=== PATIENT | female | born 1945 | race Caucasian/White ===

== ENCOUNTER 2017-06-16 05:53 | Outpatient (CLI) | payer MEDICARE, MEDICAID | END 2017-06-16 05:54 | disposition critical access hospital (66) | LOC: EMS 05:53 | PROVIDERS: ATTEND Surgery | DX: R42 Dizziness and giddiness (principal) | CPT/HCPCS: A0425; A0427 ==

== ENCOUNTER 2017-06-16 06:06 | Emergency (ER) | payer MEDICARE, MEDICAID ==
[2017-06-16] MEDS ORDERED: diltiaZEM INJ 5 MG/ML VIAL IVP STA (06:13)
[2017-06-16] MEDS ORDERED: SODIUM CHLORIDE 0.9% 1,000 ML IV ONE (06:15)
--- NOTE | 2017-06-16 06:21 | ED Physician Documentation ---
History of Present Illness - Stated complaint Stated Complaint: DIZZY - Chief complaint Chief Complaint: Neuro - History obtained from History obtained from: Patient, EMS - History of Present Illness Timing: Today - Additonal information Additional information: Patient is a 71 year old female with a history of a-fib who is presenting to the emergency department for dizziness. Patient states that she woke up this morning and was feeling dizzy so she called ems. when ems arrived patient was found to have a variable heart rate between 100-180. Patient states that she forgot to take her diltiazam last night but she did end up taking it this morning. Patient denied any chest pain or shortness of breath. Patient was able to ambulate without difficulty when ems arrived. Upon initial evaluation in the emergency department patient was found to have a heart rate of 140s. Review of Systems Constitutional: denies: Fever, Chills Eyes: denies: Decreased vision Ears: reports: Reviewed and negative. denies: Loss of hearing, Ear pain, Tinnitus/ringing Nose: denies: Congestion, Epistaxis Throat: reports: Reviewed and negative Cardiac: denies: Chest pain / pressure, Pedal edema, Calf pain Respiratory: denies: Dyspnea, Cough, Wheezing GI: denies: Abdominal Pain, Nausea, Vomiting : reports: Reviewed and negative Skin: denies: Rash, Lesions Neurologic: denies: Generalized weakness, Focal weakness, Numbness PD PAST MEDICAL HISTORY - Past Medical History Cardiovascular: Atrial fibrillation Respiratory: None Neuro: None Endocrine/Autoimmune: None GI: None : None HEENT: None Psych: None Musculoskeletal: None Derm: None - Past Surgical History Past Surgical History: Yes General: Appendectomy HEENT: Tonsil/Adenoidectomy - Present Medications Home Medications: Ambulatory Orders Medication Instructions Recorded Confirmed Albuterol [Ventolin Hfa] 2 puffs INH Q4H PRN #1 inhaler 10/20/13 06/16/17 Apixaban [Eliquis] 06/16/17 Metoprolol Tartrate 1 tab PO DAILY 06/16/17 06/16/17 Triamterene/Hydrochlorothiazid 1 tab PO DAILY 06/16/17 06/16/17 [Triamterene-Hctz 37.5-25 mg Tb] - Allergies Allergies/Adverse Reactions: Allergies Allergy/AdvReac Type Severity Reaction Status Date / Time Sulfa (Sulfonamide AdvReac Unknown Rash Verified 06/16/17 06:35 Antibiotics) - Social History Does the pt smoke?: No Smoking Status: Never smoker Does the pt drink ETOH?: No Does the pt have substance abuse?: No - Immunizations Immunizations are current?: Yes - POLST Patient has POLST: No PD ED PE NORMAL - Vitals Vital signs reviewed: Yes - General General: Alert and oriented X 3, No acute distress - HEENT HEENT: Atraumatic, PERRL - Respiratory Respiratory: No respiratory distress, Clear bilaterally - Abdomen Abdomen: Soft, Non tender, Non distended - Derm Derm: Normal color, Warm and dry, No rash - Extremities Extremities: No deformity - Neuro Neuro: Alert and oriented X 3, No motor deficit, No sensory deficit, Normal speech Eye Opening: Spontaneous Motor: Obeys Commands Verbal: Oriented GCS Score: 15 PD ED PE EXPANDED - HEENT HEENT: Dry mucous membranes - Cardiac Cardiac: Tachy, Irregularly irregular Results - Vitals Vitals: Vital Signs - 24 hr 06/16/17 06/16/17 06/16/17 06:06 06:25 06:27 Temperature 36.3 C L Heart Rate 139 H 127 H 108 H Respiratory 22 22 28 H Rate Blood Pressure 148/111 H 147/94 H 129/79 O2 Saturation 98 97 98 06/16/17 06/16/17 06/16/17 06:34 06:39 07:01 Temperature Heart Rate 121 H 118 H 122 H Respiratory 20 19 22 Rate Blood Pressure 126/93 H 119/96 H 126/96 H O2 Saturation 98 98 98 06/16/17 06/16/17 06/16/17 07:54 09:26 10:28 Temperature Heart Rate 96 105 H 86 Respiratory 24 26 H 14 Rate Blood Pressure 138/73 H 107/64 114/84 H O2 Saturation 96 97 96 Oxygen O2 Source Room air - EKG (time done) 06/16/17 Rate: Rate (enter#) (149) Rhythm: Atrial fibrillation [place]: Normal Intervals: Prolonged QT QRS: Poor R wave progression Compare to prior EKG: Changed from prior EKG Computer interpretation: Disagree with computer - Labs Labs: Laboratory Tests 06/16/17 06/16/17 06/16/17 06:30 06:30 06:30 WBC 6.0 RBC 4.42 Hgb 14.5 Hct 44.8 MCV 101.4 H MCH 32.9 H MCHC 32.5 RDW 14.0 Plt Count 217 MPV 9.2 Neut # 4.3 Lymph # 1.0 L [place] # 0.4 Eos # 0.2 Baso # 0.1 Absolute Nucleated RBC 0.00 Nucleated RBC % 0.0 Sodium 140 Potassium 3.6 Chloride 101 Carbon Dioxide 25 Anion Gap 14.0 H BUN 16 Creatinine 0.6 Estimated GFR (MDRD) 99 Glucose 137 H Calcium 9.7 Phosphorus 3.9 Magnesium 1.5 L Total Bilirubin 0.4 AST 23 ALT 21 Alkaline Phosphatase 55 Troponin I < 0.04 B-Natriuretic Peptide Total Protein 7.8 Albumin 4.3 Globulin 3.5 Albumin/Globulin Ratio 1.2 Lipase 27 TSH Urine Color Urine Clarity Urine pH Ur Specific [place] Urine Protein Urine Glucose (UA) Urine Ketones Urine Occult Blood Urine Nitrite Urine Bilirubin Urine Urobilinogen Ur Leukocyte Esterase Urine RBC Urine WBC Ur Squamous Epith Cells Urine Bacteria Ur Microscopic Review Urine Culture Comments 06/16/17 06/16/17 06/16/17 06:30 06:30 08:55 WBC RBC Hgb Hct MCV MCH MCHC RDW Plt Count MPV Neut # Lymph # [place] # Eos # Baso # Absolute Nucleated RBC Nucleated RBC % Sodium Potassium Chloride Carbon Dioxide Anion Gap BUN Creatinine Estimated GFR (MDRD) Glucose Calcium Phosphorus Magnesium Total Bilirubin AST ALT Alkaline Phosphatase Troponin I B-Natriuretic Peptide 101 H Total Protein Albumin Globulin Albumin/Globulin Ratio Lipase TSH 3.45 Urine Color YELLOW Urine Clarity CLEAR Urine pH 6.0 Ur Specific [place] 1.010 Urine Protein NEGATIVE Urine Glucose (UA) NEGATIVE Urine Ketones NEGATIVE Urine Occult Blood NEGATIVE Urine Nitrite NEGATIVE Urine Bilirubin NEGATIVE Urine Urobilinogen 0.2 (NORMAL) Ur Leukocyte Esterase TRACE H Urine RBC 0-5 Urine WBC 4-5 Ur Squamous Epith Cells FEW Squamous Urine Bacteria Many H Ur Microscopic Review INDICATED Urine Culture Comments INDICATED PD MEDICAL DECISION MAKING - ED course Complexity details: reviewed old records, reviewed results, re-evaluated patient , considered differential, d/w patient ED course: Patient was seen and examined at bedside. ekg was performed and showed a fib with rvr. Patient was asymptomatic at rest though. IV access was gained and labs were drawn. Patient was treated with diltiazam 20mg and NS bolus. Patient 's heart rate improved. Patient then stated that she had not taken her metoprolol either and was treated with her dose of 25 mg. Patient's diagnostics were within normal limits. Patient required no further work up and was stable for discharge [facility] outpatient follow up. Departure - Departure Disposition: 01 Home, Self Care Clinical Impression: A-fib Condition: Good Instructions: Atrial Fibrillation Dc Follow-Up: Bret Mclain MD [Primary Care Provider] - Comments: Your symptoms today are being caused by an irregular heart beat a fib. Your rate was elevated today likely because you did not take your medications last night. It is important that you are compliant with your medications as skipping doses can cause a reflex tachycardia and make your symptoms worse. If you do not like the side effects of the medication you should follow up with your doctor to work on alternatives. You may return to the emergency department at any time for new, worsening or uncontrollable symptoms. Discharge Date/Time: 06/16/17 10:39
[2017-06-16 06:35] LABS: BASOPHILS # (AUTO) 0.1 10^3/uL (0.0-0.1); BASOPHILS % (AUTO) 1.5 %; EOSINOPHILS # (AUTO) 0.2 10^3/uL (0.0-0.7); EOSINOPHILS % (AUTO) 3.6 %; HGB - HEMOGLOBIN 14.5 g/dL (12.0-16.0); LYMPHOCYTES % (AUTO) 16.8 %; MEAN CORPUSCULAR HEMOGLOBIN 32.9 pg (27.0-31.0); MEAN CORPUSCULAR HGB CONC 32.5 g/dL (32.0-36.0); MEAN CORPUSCULAR VOLUME 101.4 fL (81.0-99.0); MEAN PLATELET VOLUME 9.2 fL (7.9-10.8); MONOCYTES # (AUTO) 0.4 10^3/uL (0.0-1.0); NEUTROPHILS # (AUTO) 4.3 10^3/uL (1.5-6.6); NEUTROPHILS % (AUTO) 71.1 %; PLT - PLATELET COUNT 217 10^3/uL (130-450); RED BLOOD COUNT 4.42 10^6/uL (4.20-5.40)
[2017-06-16] MEDS ORDERED: METOPROLOL SUCCINATE 25 MG TABLET PO STA (06:44)
[2017-06-16 06:50] LABS: ALBUMIN 4.3 g/dL (3.2-5.5); ALBUMIN/GLOBULIN RATIO 1.2 (1.0-2.2); BILIRUBIN,TOTAL 0.4 mg/dL (0.2-1.0); CALCIUM 9.7 mg/dL (8.5-10.3); CREATININE 0.6 mg/dL (0.4-1.0); MAGNESIUM 1.5 mg/dL (1.7-2.8); PHOSPHORUS 3.9 mg/dL (2.5-4.6); TOTAL PROTEIN 7.8 g/dL (6.7-8.2)
[2017-06-16 09:18] LABS: BILIRUBIN,URINE NEGATIVE (NEGATIVE); GLUCOSE, URINE (UA) NEGATIVE (NEGATIVE); KETONES,URINE (UA) NEGATIVE (NEGATIVE); LEUKOCYTE ESTERASE, URINE TRACE (NEGATIVE); NITRITE,URINE NEGATIVE (NEGATIVE); OCCULT BLOOD,URINE NEGATIVE (NEGATIVE); PROTEIN,URINE NEGATIVE (NEGATIVE); UROBILINOGEN,URINE 0.2 (NORMAL) E.U./dL (NORMAL)
[2017-06-16 09:19] LABS: CLARITY,URINE CLEAR (CLEAR)
[2017-06-16 09:27] LABS: BACTERIA,URINE Many /HPF (None Seen); RBC,URINE 0-5 /HPF (0-5); SQUAMOUS EPITHELIAL CELL,UR FEW Squamous (<= Few)
[2017-06-16 10:29] VITALS: BP 114/84
== END 2017-06-16 10:39 | disposition home or self-care (01) ==
LOC: EDUNIT# → ED 06:06
DX: I48.91 Unspecified atrial fibrillation (principal); R00.0 Tachycardia, unspecified
CPT/HCPCS: 36415; 80053; 81001; 83690; 83735; 83880; 84100; 84443; 84484; 85025; 87086; 87181; 93005; 96361; 96374; 99284; 99285; A9270; 81003

== ENCOUNTER 2017-07-06 09:52 | Outpatient (CLI) | payer MEDICARE, MEDICAID ==
--- NOTE | 2017-07-07 15:57 | Mammography Report ---
DIGITAL SCREENING MAMMOGRAM: 07/06/2017 CLINICAL INDICATION: A 71-year-old with history of late childbearing, for baseline. TECHNIQUE: Routine CC and MLO projections were obtained of the breasts. Bilateral laterally exaggerated craniocaudal views. FINDINGS: The breasts demonstrate scattered fibroglandular densities bilaterally. Coarse and punctate, typically benign calcifications are present. An intramammary lymph node is incidentally noted in the right upper outer quadrant. No suspicious masses, clustered microcalcifications, or regions of architectural distortion are identified. IMPRESSION: BENIGN FINDINGS. RECOMMENDATION: ROUTINE ANNUAL SCREENING UNLESS OTHERWISE CLINICALLY INDICATED. BIRADS CATEGORY 2-BENIGN FINDINGS. STANDARD QUALIFYING STATEMENTS: 1. This examination was reviewed with the aid of Computer-Aided Detection (CAD). 2. A negative or benign imaging report should not delay biopsy if clinically suspicious findings are present. Consider surgical consultation if warranted. More than 5% of cancers are not identified by imaging. 3. Dense breasts may obscure an underlying neoplasm. TD: 07/07/2017 15:57
== END 2017-07-06 09:53 | disposition home or self-care (01) ==
LOC: DI 09:52
PROVIDERS: ATTEND Family Medicine
DX: Z12.31 Encounter for screening mammogram for malignant neoplasm of breast (principal)
CPT/HCPCS: 77067

== ENCOUNTER 2017-10-06 08:47 | Emergency (ER) | payer MEDICARE, MEDICAID ==
[2017-10-06] MEDS ORDERED: ONDANSETRON 4 MG/2 ML VIAL IVP STA (09:13)
[2017-10-06] MEDS ORDERED: SODIUM CHLORIDE 0.9% 1,000 ML IV ONE (09:13)
[2017-10-06] MEDS ORDERED: fentaNYL 100 MCG/2 ML VIAL IVP STA (09:13)
--- NOTE | 2017-10-06 09:16 | ED Physician Documentation ---
PD HPI NVD - Stated complaint Stated Complaint: ABD PX/VOMITING - Chief complaint Chief Complaint: Abd Pain - History obtained from History obtained from: Patient, Family - History of Present Illness Timing - onset: Enter time (1700), Last night Timing - duration: Hours Timing - details: Abrupt onset, Still present Associated symptoms: Abdominal pain Contributing factors: Alcohol use Improved by: Vomiting Worsened by: Eating, Position, Palpation Similar symptoms before: No diagnosis Recently seen: Not recently seen - Additonal information Additional information: 72-year-old female with a history of atrial fibrillation has developed acute indigestion last night about 5:00. She subsequently began vomiting and has epigastric abdominal pain. She had an episode similar to this on Mother's Day that was short-lived. She also recalls that when she eats and then goes out into the garden to work she will have a feeling of fullness and feels like there is something kinked in her abdomen when she bends over. Review of Systems Constitutional: denies: Fever Eyes: denies: Decreased vision Ears: denies: Ear pain Nose: denies: Congestion Throat: denies: Sore throat Cardiac: denies: Chest pain / pressure, Palpitations Respiratory: denies: Dyspnea, Cough GI: reports: Abdominal Pain, Nausea, Vomiting : denies: Dysuria, Frequency Skin: denies: Rash Musculoskeletal: denies: Neck pain, Back pain, Extremity pain Neurologic: denies: Generalized weakness, Focal weakness, Numbness PD PAST MEDICAL HISTORY - Past Medical History Cardiovascular: Atrial fibrillation Respiratory: None Endocrine/Autoimmune: None GI: None : None HEENT: None Psych: None Musculoskeletal: None Derm: None - Past Surgical History Past Surgical History: Yes General: Appendectomy HEENT: Tonsil/Adenoidectomy - Present Medications Home Medications: Ambulatory Orders Medication Instructions Recorded Confirmed Apixaban [Eliquis] 1 tab PO BID 06/16/17 Metoprolol Tartrate 1 tab PO DAILY 06/16/17 06/16/17 Triamterene/Hydrochlorothiazid 1 tab PO DAILY 06/16/17 06/16/17 [Triamterene-Hctz 37.5-25 mg Tb] Sucralfate [Carafate] 1 gm PO ACHS #30 tablet 10/06/17 diltiaZEM [Cardizem] 1 tab PO BID 10/06/17 10/06/17 - Allergies Allergies/Adverse Reactions: Allergies Allergy/AdvReac Type Severity Reaction Status Date / Time Sulfa (Sulfonamide AdvReac Unknown Rash Verified 10/06/17 08:54 Antibiotics) - Social History Does the pt smoke?: No Smoking Status: Never smoker Does the pt drink ETOH?: No Does the pt have substance abuse?: No - Immunizations Immunizations are current?: Yes - POLST Patient has POLST: No PD ED PE NORMAL - Vitals Vital signs reviewed: Yes (tachy and hypertensive ) - General General: Alert and oriented X 3, No acute distress, Well developed/nourished - HEENT HEENT: Atraumatic, PERRL, EOMI - Neck Neck: Supple, no meningeal sign - Cardiac Cardiac: No murmur, Other (tachy and irregular) - Respiratory Respiratory: No respiratory distress, Clear bilaterally - Abdomen Abdomen: Soft, Other (epigastric tenderness midline without guarding. no referred tenderness. ) - Back Back: No CVA TTP, No spinal TTP - Derm Derm: Normal color, Warm and dry, No rash - Extremities Extremities: No deformity, No edema - Neuro Neuro: No motor deficit, No sensory deficit Eye Opening: Spontaneous Motor: Obeys Commands Verbal: Oriented GCS Score: 15 - Psych Psych: Normal mood, Normal affect Results - Vitals Vitals: Vital Signs - 24 hr 10/06/17 10/06/17 10/06/17 08:50 11:01 13:07 Temperature 36.6 C 37.2 C Heart Rate 107 H 95 104 H Respiratory 20 20 23 Rate Blood Pressure 131/92 H 112/72 111/67 O2 Saturation 97 98 97 10/06/17 10/06/17 10/06/17 13:50 15:00 16:16 Temperature 36.6 C Heart Rate 102 H 107 H Respiratory 30 H 17 Rate Blood Pressure 101/73 120/88 H O2 Saturation 92 87 L 97 10/06/17 10/06/17 10/06/17 17:13 17:17 17:52 Temperature 36.9 C Heart Rate 110 H 68 82 Respiratory 18 25 H 22 Rate Blood Pressure 116/86 H 88/49 L 91/61 O2 Saturation 93 94 92 10/06/17 18:04 Temperature Heart Rate 97 Respiratory 24 Rate Blood Pressure 104/63 O2 Saturation 90 L Oxygen O2 Source Room air - EKG (time done) 1435 Rate: Rate (enter#) (97) Rhythm: Atrial fibrillation, Other (paired PVC's) Ischemia: Other (falt T's ) Compare to prior EKG: Changed from prior EKG (SPT 06-16-17 the QT interval has normalized, the rate is slower and the rhythm is afib. ) Computer interpretation: Agree with computer - Labs Labs: Laboratory Tests 10/06/17 10/06/17 10/06/17 09:19 09:19 11:30 WBC 13.6 H RBC 4.10 L Hgb 13.8 Hct 40.5 MCV 98.7 MCH 33.7 H MCHC 34.1 RDW 14.0 Plt Count 237 MPV 9.8 Neut # Not Reportable Lymph # Not Reportable [place] # Not Reportable Eos # Not Reportable Baso # Not Reportable Absolute Nucleated RBC Not Reportable Total Counted 100 Band Neuts % (Manual) 1 Abnorm Lymph % (Manual) 0 Nucleated RBC % Not Reportable Neutrophils # (Manual) 12.2 H Lymphocytes # (Manual) 1.0 L Monocytes # (Manual) 0.4 Eosinophils # (Manual) 0.0 Basophils # (Manual) 0.0 Differential Comment MANUAL DIFFERENTIAL Sodium 135 Potassium 3.1 L Chloride 96 L Carbon Dioxide 26 Anion Gap 13.0 BUN 17 Creatinine 0.7 Estimated GFR (MDRD) 82 L Glucose 169 H Calcium 9.2 Total Bilirubin 1.0 AST 23 ALT 19 Alkaline Phosphatase 57 Troponin I Total Protein 7.8 Albumin 4.5 Globulin 3.3 Albumin/Globulin Ratio 1.4 Lipase 27 Urine Color YELLOW Urine Clarity CLEAR Urine pH 6.5 Ur Specific [place] 1.020 Urine Protein NEGATIVE Urine Glucose (UA) NEGATIVE Urine Ketones NEGATIVE Urine Occult Blood TRACE-INTA Urine Nitrite NEGATIVE Urine Bilirubin NEGATIVE Urine Urobilinogen 0.2 (NORMAL) Ur Leukocyte Esterase NEGATIVE Ur Microscopic Review NOT INDICATED Urine Culture Comments NOT INDICATED 10/06/17 14:36 WBC RBC Hgb Hct MCV MCH MCHC RDW Plt Count MPV Neut # Lymph # [place] # Eos # Baso # Absolute Nucleated RBC Total Counted Band Neuts % (Manual) Abnorm Lymph % (Manual) Nucleated RBC % Neutrophils # (Manual) Lymphocytes # (Manual) Monocytes # (Manual) Eosinophils # (Manual) Basophils # (Manual) Differential Comment Sodium Potassium Chloride Carbon Dioxide Anion Gap BUN Creatinine Estimated GFR (MDRD) Glucose Calcium Total Bilirubin AST ALT Alkaline Phosphatase Troponin I < 0.04 Total Protein Albumin Globulin Albumin/Globulin Ratio Lipase Urine Color Urine Clarity Urine pH Ur Specific [place] Urine Protein Urine Glucose (UA) Urine Ketones Urine Occult Blood Urine Nitrite Urine Bilirubin Urine Urobilinogen Ur Leukocyte Esterase Ur Microscopic Review Urine Culture Comments Procedures - IVC sono (time) 0910 Bedside IVC sono: IVC measures (cm) (0.84), IVC collapsed c insp (cm) (complete) , Dehydration (est 2 liter deficit) PD MEDICAL DECISION MAKING - ED course Complexity details: reviewed old records, reviewed results, re-evaluated patient , considered differential, d/w patient, d/w family ED course: 72-year-old female with a history of atrial fibrillation and alcohol use has developed acute epigastric abdominal pain nausea and vomiting and is dehydrated on arrival to the emergency department. She is administered intravenous saline and Zofran with fentanyl. This helps and she requires diltiazem IVP for rate control and she is given her morning dose of metoprolol tartrate 25mg. She does not know the dose of diltiazem and this is not administered orally and she eventually requires a second IV dose of diltiazem. She improves her pain with viscous lidocaine and myl[place] and she is administered protonix IV and carafate. She stabilizes and is discharged. I believe her stomach pains are related to her alcohol consumption and I have discussed with the patient abstinence and treatment required and she agrees this is the likely culprit. Departure - Departure Disposition: 01 Home, Self Care Clinical Impression: Atrial fibrillation with RVR, Dehydration Gastritis Qualifiers: Gastritis type: alcoholic Chronicity: acute Gastritis bleeding: without bleeding Qualified Code(s): K29.20 - Alcoholic gastritis without bleeding Condition: Stable Instructions: ED Afib, ED Dehydration, ED PUD Vs Gastritis Follow-Up: Bret Mclain MD [Primary Care Provider] - Prescriptions: Sucralfate [Carafate] 1 gm PO ACHS #30 tablet Comments: Today it appears the pain you are having in your stomach is related to irritation to the lining of the stomach. Take medication to reduce the acid in your stomach such as Pepcid AC or Nexium. Take this for at least 7-10 days. In addition, take the Carafate as prescribed for 1 week. Avoid alcohol during this period. Take your regular medications as prescribed for your heart.
[2017-10-06 09:30] LABS: BASOPHILS % (AUTO) 0.3 %; EOSINOPHILS % (AUTO) 0.1 %; HGB - HEMOGLOBIN 13.8 g/dL (12.0-16.0); LYMPHOCYTES % (AUTO) 3.4 %; MEAN CORPUSCULAR HEMOGLOBIN 33.7 pg (27.0-31.0); MEAN CORPUSCULAR HGB CONC 34.1 g/dL (32.0-36.0); MEAN CORPUSCULAR VOLUME 98.7 fL (81.0-99.0); MEAN PLATELET VOLUME 9.8 fL (7.9-10.8); MONOCYTES % (AUTO) 5.1 %; NEUTROPHILS % (AUTO) 91.1 %; PLT - PLATELET COUNT 237 10^3/uL (130-450); WHITE BLOOD COUNT 13.6 x10^3/uL (4.8-10.8)
[2017-10-06 09:33] LABS: ABNORMAL LYMPHS % (MANUAL) 0 %
[2017-10-06 09:42] LABS: ALBUMIN 4.5 g/dL (3.2-5.5); ALBUMIN/GLOBULIN RATIO 1.4 (1.0-2.2); CALCIUM 9.2 mg/dL (8.5-10.3); CREATININE 0.7 mg/dL (0.4-1.0); TOTAL PROTEIN 7.8 g/dL (6.7-8.2)
[2017-10-06 09:50] LABS: BAND NEUTROPHILS % (MANUAL) 1 %; DIFFERENTIAL COMMENT MANUAL DIFFERENTIAL; LYMPHOCYTES % (MANUAL) 7 %; MONOCYTES # (MANUAL) 0.4 10^3/uL (0.0-1.0); NEUTROPHILS # (MANUAL) 12.2 10^3/uL (1.5-6.6); NEUTROPHILS % (MANUAL) 89 %
[2017-10-06] MEDS ORDERED: PANTOPRAZOLE 40 MG VIAL IVP STA (09:52)
[2017-10-06 11:35] LABS: BILIRUBIN,URINE NEGATIVE (NEGATIVE); GLUCOSE, URINE (UA) NEGATIVE (NEGATIVE); KETONES,URINE (UA) NEGATIVE (NEGATIVE); LEUKOCYTE ESTERASE, URINE NEGATIVE (NEGATIVE); NITRITE,URINE NEGATIVE (NEGATIVE); OCCULT BLOOD,URINE TRACE-INTA (NEGATIVE); PH,URINE 6.5 PH (5.0-7.5); PROTEIN,URINE NEGATIVE (NEGATIVE); UROBILINOGEN,URINE 0.2 (NORMAL) E.U./dL (NORMAL)
[2017-10-06 11:36] LABS: CLARITY,URINE CLEAR (CLEAR)
[2017-10-06] MEDS ORDERED: POTASSIUM BICARB 25 MEQ TABLET PO STA (12:07)
[2017-10-06] MEDS ORDERED: DILTIAZEM 50 MG/10 ML VIAL IVP ONE (13:07)
[2017-10-06] MEDS ORDERED: METOPROLOL TARTRATE 50 MG TABLET PO STA (13:11)
[2017-10-06] MEDS ORDERED: THIAMINE INJ 100 MG, FOLIC ACID INJ 1 MG in SODIUM CHLORIDE 0.9% 100ML 100 ML IV STA (13:12)
[2017-10-06] MEDS ORDERED: MULTIVITAMIN 10 ML in SODIUM CHLORIDE 0.9% 1,000 ML IV STA (13:12)
[2017-10-06] MEDS ORDERED: MAGNESIUM SULFATE 2 GRAM 2 GM/50 ML BAG IV STA (13:12)
[2017-10-06] MEDS ORDERED: diltiaZEM INJ 5 MG/ML VIAL IVP ONE (14:00)
[2017-10-06] MEDS ORDERED: MAG HYDROX/AL HYDROX/SIMETH 30 ML UDC PO STA (14:19)
[2017-10-06] MEDS ORDERED: LIDOCAINE VISCOUS 2% 15 ML UDC MM STA (14:19)
[2017-10-06] MEDS ORDERED: SUCRALFATE 1 GM/10 ML UDC PO STA ×2 (14:47→17:28)
[2017-10-06] MEDS ORDERED: diltiaZEM INJ 5 MG/ML VIAL IVP SCH (18:00)
[2017-10-06 18:05] VITALS: BP 104/63
== END 2017-10-06 18:11 | disposition home or self-care (01) ==
LOC: ED 08:47
DX: I48.91 Unspecified atrial fibrillation (principal); K29.20 Alcoholic gastritis without bleeding; E86.0 Dehydration
CPT/HCPCS: 36415; 80053; 81003; 83690; 84484; 85025; 93005; 96361; 96365; 96367; 96368; 96375; 96376; 99284; A9270; J3411; 81001; 87086

== ENCOUNTER 2017-11-16 16:22 | Emergency (ER) | payer MEDICARE, MEDICAID ==
[2017-11-16 17:15] LABS: BASOPHILS # (AUTO) 0.1 10^3/uL (0.0-0.1); BASOPHILS % (AUTO) 0.7 %; EOSINOPHILS # (AUTO) 0.1 10^3/uL (0.0-0.7); EOSINOPHILS % (AUTO) 0.8 %; HGB - HEMOGLOBIN 12.1 g/dL (12.0-16.0); LYMPHOCYTES # (AUTO) 1.2 10^3/uL (1.5-3.5); LYMPHOCYTES % (AUTO) 7.3 %; MEAN CORPUSCULAR HEMOGLOBIN 32.3 pg (27.0-31.0); MEAN CORPUSCULAR VOLUME 97.8 fL (81.0-99.0); MEAN PLATELET VOLUME 8.4 fL (7.9-10.8); MONOCYTES # (AUTO) 1.3 10^3/uL (0.0-1.0); MONOCYTES % (AUTO) 7.7 %; NEUTROPHILS # (AUTO) 13.9 10^3/uL (1.5-6.6); NEUTROPHILS % (AUTO) 83.5 %; PLT - PLATELET COUNT 613 10^3/uL (130-450); RED BLOOD COUNT 3.76 10^6/uL (4.20-5.40); RED CELL DISTRIBUTION WIDTH 13.3 % (12.0-15.0); WHITE BLOOD COUNT 16.7 x10^3/uL (4.8-10.8)
[2017-11-16 17:25] LABS: ALBUMIN 2.9 g/dL (3.2-5.5); ALBUMIN/GLOBULIN RATIO 0.6 (1.0-2.2); BILIRUBIN,TOTAL 0.6 mg/dL (0.2-1.0); CREATININE 0.8 mg/dL (0.4-1.0); TOTAL PROTEIN 8.1 g/dL (6.7-8.2)
--- NOTE | 2017-11-16 19:19 | ED Physician Documentation ---
PD HPI ABD PAIN - Stated complaint Stated Complaint: RLQ PAIN - Chief complaint Chief Complaint: Abd Pain - History obtained from History obtained from: Patient - History of Present Illness Timing - onset: How many days ago (4) Timing - duration: Days (4) Timing - details: Gradual onset, Still present Quality: Sharp, Stabbing, Pain Location: RUQ, RLQ Radiation: Lower back Worsened by: Eating, Position, Palpation. No: Breathing Associated symptoms: Nausea. No: Fever, Diarrhea (but has loose stools the past few days), Constipation Similar symptoms before: No diagnosis (has had similar at times for few months, but not consistent. Assumed was stomach related and started with Omeprazole 4 days ago.) Recently seen: Clinic (started on Omeprazole without improvement.) Review of Systems Constitutional: reports: Myalgias. denies: Fever, Chills Nose: denies: Rhinorrhea / runny nose, Congestion Throat: denies: Sore throat Cardiac: denies: Chest pain / pressure Respiratory: denies: Cough GI: reports: Nausea, Vomiting, Diarrhea : denies: Dysuria, Frequency Skin: denies: Rash, Lesions Neurologic: reports: Generalized weakness. denies: Focal weakness, Numbness Psychiatric: denies: Anxiety, Insomnia Endocrine: reports: Weight loss, Easy bruising / bleeding Immunocompromised: denies: Immunocompromised PD PAST MEDICAL HISTORY - Past Medical History Cardiovascular: Atrial fibrillation Respiratory: None Endocrine/Autoimmune: None GI: None : None HEENT: None Psych: None Musculoskeletal: None Derm: None - Past Surgical History Past Surgical History: Yes General: Appendectomy HEENT: Tonsil/Adenoidectomy - Present Medications Home Medications: Ambulatory Orders Medication Instructions Recorded Confirmed Apixaban [Eliquis] 5 mg PO BID 06/16/17 Metoprolol Tartrate 50 mg PO BID 06/16/17 06/16/17 Triamterene/Hydrochlorothiazid 1 tab PO DAILY 06/16/17 06/16/17 [Triamterene-Hctz 37.5-25 mg Tb] diltiaZEM [Cardizem] 120 mg PO BID 10/06/17 10/06/17 - Allergies Allergies/Adverse Reactions: Allergies Allergy/AdvReac Type Severity Reaction Status Date / Time Sulfa (Sulfonamide AdvReac Unknown Rash Verified 10/06/17 08:54 Antibiotics) - Social History Does the pt smoke?: No Smoking Status: Never smoker Does the pt drink ETOH?: No Does the pt have substance abuse?: No - Family History Family history: reports: Non contributory - Immunizations Immunizations are current?: Yes - POLST Patient has POLST: No PD ED PE NORMAL - Vitals Vital signs reviewed: Yes - General General: Alert and oriented X 3, Well developed/nourished, Other (appears in significant pain. ) - HEENT HEENT: Moist mucous membranes, Pharynx benign - Neck Neck: Supple, no meningeal sign, No adenopathy - Cardiac Cardiac: RRR, No murmur - Respiratory Respiratory: Clear bilaterally - Abdomen Abdomen: Soft, No organomegaly, Other (tender right abdomen with guarding and percussion tenderness. No rebound nor referred tenderness. ) - Female Female : Deferred - Rectal Rectal: Deferred - Back Back: No CVA TTP - Derm Derm: Warm and dry. No: Normal color (mild pallor) Results - Vitals Vitals: Vital Signs - 24 hr 11/16/17 11/16/17 11/16/17 16:41 19:26 19:50 Temperature 36.7 C Heart Rate 77 85 145 H Respiratory 14 20 Rate Blood Pressure 104/75 137/84 H O2 Saturation 100 96 11/16/17 11/16/17 11/16/17 20:12 20:59 21:25 Temperature Heart Rate 123 H 135 H 113 H Respiratory 28 H 26 H 26 H Rate Blood Pressure 95/63 102/76 94/72 O2 Saturation 94 96 97 11/16/17 11/16/17 11/16/17 21:28 22:10 22:54 Temperature 36.5 C Heart Rate 116 H 107 H Respiratory 28 H 20 Rate Blood Pressure 108/63 94/61 O2 Saturation 96 95 11/16/17 11/16/17 11/17/17 23:33 23:35 00:21 Temperature 36.4 C L Heart Rate 110 H 122 H Respiratory 24 25 H Rate Blood Pressure 99/63 101/75 O2 Saturation 95 95 Oxygen O2 Source Nasal cannula Oxygen Flow Rate 2 - Labs Labs: Laboratory Tests 11/16/17 11/16/17 11/16/17 17:04 17:04 23:05 WBC 16.7 H RBC 3.76 L Hgb 12.1 Hct 36.7 L MCV 97.8 MCH 32.3 H MCHC 33.0 RDW 13.3 Plt Count 613 H MPV 8.4 Neut # (Auto) 13.9 H Lymph # (Auto) 1.2 L [place] # (Auto) 1.3 H Eos # (Auto) 0.1 Baso # (Auto) 0.1 Absolute Nucleated RBC 0.00 Nucleated RBC % 0.0 Sodium 129 L Potassium 4.1 Chloride 89 L Carbon Dioxide 29 Anion Gap 11.0 BUN 22 H Creatinine 0.8 Estimated GFR (MDRD) 71 L Glucose 152 H Lactic Acid 0.7 Calcium 9.0 Total Bilirubin 0.6 AST 27 ALT 34 Alkaline Phosphatase 195 H Total Protein 8.1 Albumin 2.9 L Globulin 5.2 H Albumin/Globulin Ratio 0.6 L Lipase 86 H - Rads (name of study) abd CT Radiology: Prelim report reviewed (enlarged gallbladder with thickened thurston, with intralumenal septations and outpouchings, c/w acute cholecystitis and concerning for gangrenous (though no air seen). ) PD MEDICAL DECISION MAKING - ED course Complexity details: re-evaluated patient (The patient was given IV fluids and medications for pain and nausea. She was feeling improved with the pain. She did go from a normal heart rate to fast atrial fibrillation of 130-140. She was given diltiazem IV with a slowing of her heart rate to approximately 100- 110. However blood pressure did decrease to 9200 systolic. She is given IV fluids further. Her blood pressure remains relatively low from 95-115 systolic. Heart rate is reasonable at about 110. I prefer not to give her more diltiazem or beta blockers. I talked with Dr. Morrell who is on-call for surgery and came in to see the patient. Due to her being on a blood thinner, he felt surgery was risky and percutaneous drainage would be more appropriate. He recommends transfer to a facility that would have that capacity. We will evaluate the hospital bed availability and arrange the prompt assist transfer possible.), considered differential, d/w patient, d/w eyewear consultant (Dr. Vladimir Morrell - who felt patient would be best treated with percutaneous drainage since surgery risky with the Eliquis. Recommends transfer. ) - Sepsis Event Vital Signs: Vital Signs - 24 hr 11/16/17 11/16/17 11/16/17 16:41 19:26 19:50 Temperature 36.7 C Heart Rate 77 85 145 H Respiratory 14 20 Rate Blood Pressure 104/75 137/84 H O2 Saturation 100 96 11/16/17 11/16/17 11/16/17 20:12 20:59 21:25 Temperature Heart Rate 123 H 135 H 113 H Respiratory 28 H 26 H 26 H Rate Blood Pressure 95/63 102/76 94/72 O2 Saturation 94 96 97 11/16/17 11/16/17 11/16/17 21:28 22:10 22:54 Temperature 36.5 C Heart Rate 116 H 107 H Respiratory 28 H 20 Rate Blood Pressure 108/63 94/61 O2 Saturation 96 95 11/16/17 11/16/17 11/17/17 23:33 23:35 00:21 Temperature 36.4 C L Heart Rate 110 H 122 H Respiratory 24 25 H Rate Blood Pressure 99/63 101/75 O2 Saturation 95 95 Oxygen O2 Source Nasal cannula Oxygen Flow Rate 2 Departure - Departure Disposition: 02 Transfer Acute Care Hosp Clinical Impression: Acute cholecystitis, Atrial fibrillation with rapid ventricular response Abdominal pain Qualifiers: Abdominal location: right upper quadrant Qualified Code(s): R10.11 - Right upper quadrant pain Condition: Stable Record reviewed to determine appropriate education?: Yes
[2017-11-16] MEDS ORDERED: MORPHINE 10 MG/ML VIAL IVP STA (19:40)
[2017-11-16] MEDS ORDERED: SODIUM CHLORIDE 0.9% 1,000 ML IV ONE ×3 (19:40→22:49)
[2017-11-16] MEDS ORDERED: ACETAMINOPHEN 1,000 MG/100 ML 100 ML IV STA (19:40)
[2017-11-16] MEDS ORDERED: ONDANSETRON 4 MG/2 ML VIAL IVP STA (19:40)
[2017-11-16] MEDS ORDERED: diltiaZEM INJ 5 MG/ML VIAL IVP STA (20:02)
[2017-11-16] MEDS ORDERED: IOPAMIDOL-300 100 ML VIAL ONE (20:10)
[2017-11-16] MEDS ORDERED: IOPAMIDOL-300 100 ML VIAL IVP ONE (20:50)
--- NOTE | 2017-11-16 21:23 | CT Report ---
Procedure Date: 11/16/2017 Accession Number: [id number] / [id number] Procedure: CT - Abdomen/Pelvis W/ CPT Code: FULL RESULT: EXAM: CT ABDOMEN AND PELVIS EXAM DATE: 11/16/2017 08:48 PM. CLINICAL HISTORY: Lower right abd pain today. COMPARISONS: None. TECHNIQUE: Routine helical CT imaging was performed through the abdomen and pelvis. IV contrast: 100 ML ISOVUE 300. Enteric contrast: No. Reconstructions: Coronal and sagittal. In accordance with CT protocol optimization, one or more of the following dose reduction techniques were utilized for this exam: automated exposure control, adjustment of mA and/or KV based on patient size, or use of iterative reconstructive technique. FINDINGS: ABDOMEN: Lung Bases: Incompletely included lower lungs are grossly clear. Heart size is within normal limits. No basilar effusions. Liver: Unremarkable. Spleen: Unremarkable. Pancreas: Unremarkable. Gallbladder/Bile Ducts: Gallbladder is markedly dilated with intraluminal septations and sloughed membranes. There are a few focal outpouchings, for instance medially measuring 3.3 cm (5/28) and posteriorly measuring 3.3 cm (3/39). No emphysema. Biliary tree is normal caliber. Adrenal Glands: 3.9 cm solid right adrenal nodule. Left vein is unremarkable. Kidneys: No mass, calculi, or hydronephrosis. Peritoneum/Mesentery/Bowel: No free fluid, free air, or collection. No intestinal obstruction or inflammation. Appendix not definitely identified. No pericecal inflammatory changes. Lymph nodes: No mesenteric, periportal, or retroperitoneal lymphadenopathy. Vasculature: Abdominal aorta is nonaneurysmal. Portal vein is patent. Hepatic veins are patent. PELVIS: The bladder is unremarkable for the degree of distention. Uterus is present. No pelvic lymphadenopathy. Small fat filled inguinal hernias. Bones: No suspicious osseous lesions. IMPRESSION: Acute severe cholecystitis. Internal septations/left membranes as well as focal outpouchings is suspicious for gangrenous cholecystitis. Surgical consultation is recommended. Indeterminant solid 3.9 cm right adrenal nodule. RADIA The above findings were discussed with Gomez Ahuja by Dr. Roberto Montejo at 21:22 hrs on 11/16/17. ADDENDUM: 11/16/17 21:33 Impression: Acute severe cholecystitis. Internal septations/left membranes as well as focal outpouchings is suspicious for gangrenous cholecystitis. Surgical consultation is recommended. Indeterminate solid 3.9 cm right adrenal nodule. Nonemergent dedicated adrenal CT recommended in 6 months.
[2017-11-16] MEDS ORDERED: AMPICILLIN/SULBACTAM 1.5 GM in SODIUM CHLORIDE 0.9% MINIBAG 100 ML IV STA (21:40)
--- NOTE | 2017-11-16 22:17 | CONSULTATION NOTE ---
Referring Provider Name of Referring Provider:: Dr. Gomez Ahuja Consult Date: 11/16/17 Chief Complaint - Chief Complaint Chief Complaint: abd pain History of Present Illness - Admitted From Admitted From:: ER - History Obtained From Records Reviewed: yes History obtained from: pt Exam Limitations: none - History of Present Illness HPI Comment/Other: 72 yo female with sudden onset of severe right sided abdominal pain at 0900 today, associated with nausea but no vomiting, no fever/chills, prior similar sx , unusual oral intake, hx jaundice or hepatitis. Approx 6 weeks ago she presented to the ER with epigastric pain, N/V and was diagnosed with gastritis, possibly alcoholic in nature. Her sx appeared to respond to a GI cocktail and she was discharged with PPI and sucralfate therapy. She has abstained from alcohol since but has continued to feel unwell, with anorexia and night sweats but no further pain until today. No FH of gallbladder disease or GI tumors. No prior GI evaluations. No recent wt changes, melena, hematochezia, respiratory or urinary sx. On arrival in the ER she was noted to be in Afib with RVR and was treated for same with resultant transitory hypotension. She has been treated with apixaban for the past several years for her atrial fibrillation. History - Past Medical History Cardiovascular: reports: Hypertension, Atrial fibrillation Respiratory: reports: None Endocrine/Autoimmune: reports: None GI: reports: None : reports: None HEENT: reports: None Psych: reports: None Musculoskeletal: reports: None Derm: reports: None MRSA Hx?: No - Past Surgical History General: reports: Appendectomy HEENT: reports: Tonsil/Adenoidectomy - Family & Social History Family History Comment/Other: neg for GI tumors Living arrangement: At home - Substance History Use: Uses substance without health or social issues: NONE - POLST Patient has POLST: No Meds/Allgy - Home Medications Home Medications: Ambulatory Orders Medication Instructions Recorded Confirmed Apixaban [Eliquis] 5 mg PO BID 06/16/17 Metoprolol Tartrate 50 mg PO BID 06/16/17 06/16/17 Triamterene/Hydrochlorothiazid 1 tab PO DAILY 06/16/17 06/16/17 [Triamterene-Hctz 37.5-25 mg Tb] diltiaZEM [Cardizem] 120 mg PO BID 10/06/17 10/06/17 - Allergies Allergies/Adverse Reactions: Allergies Allergy/AdvReac Type Severity Reaction Status Date / Time Sulfa (Sulfonamide AdvReac Unknown Rash Verified 10/06/17 08:54 Antibiotics) Review of Systems - Constitutional Constitutional: reports: Fatigue, Poor appetite, Diaphoresis, Night sweats. denies: Weight gain, Weight loss - Cardiovascular Cariovascular: reports: Irregular heart rate. denies: Chest pain, Edema - Respiratory Respiratory: denies: Cough, Sputum production, Wheezing - Gastrointestinal Gastrointestinal: reports: Abdominal pain, Nausea, Poor appetite. denies: Change in bowel habits, Black stools, Bloody stools, Bile emesis, Coffee grounds emesis, Reflux/heartburn - Genitourinary Genitourinary: denies: Dysuria - Hematologic/Lymphatic Hematologic/Lymphatic: reports: Bleeding tendencies (on apixaban). denies: Blood clots, Recurrent infections - All Other Systems All Other Systems: reports: Reviewed and negative Exam - Vital Signs Reviewed Vital Signs: Yes Vital Signs: Vital Signs x48h Temp Pulse Resp BP Pulse Ox 11/16/17 22:10 116 H 28 H 108/63 96 11/16/17 21:28 36.5 C 11/16/17 21:25 113 H 26 H 94/72 97 11/16/17 20:59 135 H 26 H 102/76 96 11/16/17 20:12 123 H 28 H 95/63 94 11/16/17 19:50 145 H 11/16/17 19:26 85 20 137/84 H 96 11/16/17 16:41 36.7 C 77 14 104/75 100 - Physical Exam General Appearance: positive: Moderate distress (appears ill), Anxious Eyes Bilateral: positive: Conjunctivae nml, No scleral icterus ENT: positive: ENT inspection nml, Dry mucous membranes Neck: positive: Nml inspection, No JVD. negative: Lymphadenopathy (R), Lymphadenopathy (L) Respiratory: positive: Chest non-tender, No respiratory distress, Breath sounds nml Cardiovascular: positive: No murmur, No gallop, Irregularly irregular Abdomen: positive: Nml bowel sounds, Tenderness, Guarding, Rebound, Mass ( exquisitely tender in RUQ/RLQ with suggestion of palpable gallbladder in RLQ; associated guarding/rebound and +Simeon's sign; no generalized peritoneal signs) . negative: Hepatomegaly, Splenomegaly Back: negative: CVA tenderness (R), CVA tenderness (L) Skin: positive: Warm, Diaphoresis. negative: Cyanosis Extremities: positive: Nml appearance, No pedal edema. negative: Calf tenderness Neurologic/Psychiatric: positive: Oriented x3 Conclusion/Plan - Diagnosis Diagnosis: 1. Acute cholecystitis, severe, possibly acalculous, possibly gangrenous, possible evolving sepsis. 2. Atrial fib with RVR, being treated. 3. Anticoagulation status with apixaban contraindicates emergency surgery for 24 -48 hours. - Plan Plan: Recommend transfer tonight to facility with higher level of care for percutaneous cholecystostomy tube placement and further management as appropriate. Discussed with hospitalist, Dr. Regi Christina, who concurs. - Lab Results Fish Bones: 11/16/17 17:04 11/16/17 17:04 - Diagnostic Imaging Results Diagnostic Imaging Results: positive: Final report reviewed, Critical result, Read independently Diagnostic Imaging Results Comments: CT abd/pelvis: markedly enlarged and thick walled gallbladder without stones, nl bile ducts, small amount of free fluid. suggestion of pseudomembranes in gallbladder wall but no pneumatosis of gallbladder. - EKG Results EKG Interpreted Independently: No EKG Findings: afib with VR 130
[2017-11-17] MEDS ORDERED: SODIUM CHLORIDE 0.9% 500 ML IV ONE (00:02)
[2017-11-17 00:23] VITALS: BP 101/75
== END 2017-11-17 01:06 | disposition short-term general hospital (02) ==
LOC: ED 16:22
DX: K81.0 Acute cholecystitis (principal); I48.91 Unspecified atrial fibrillation; Z79.01 Long term (current) use of anticoagulants
CPT/HCPCS: 36415; 74177; 80053; 83605; 83690; 85025; 96361; 96365; 96367; 96375; 99285; J0131; Q9967

== ENCOUNTER 2018-07-08 20:45 | Emergency (ER) | payer MEDICARE, MEDICAID ==
[2018-07-08] MEDS ORDERED: IPRATROPIUM/ALBUTEROL 3 ML NEB INH STA (21:03)
--- NOTE | 2018-07-08 21:10 | ED Physician Documentation ---
PD HPI DYSPNEA - Stated complaint Stated Complaint: SOA - Chief complaint Chief Complaint: Resp - History obtained from History obtained from: Patient - History of Present Illness Timing - onset: How many days ago (4) Timing - onset during: Rest Timing - duration: Days (4) Timing - details: Gradual onset, Still present Inciting event(s): URI Improved by: Rest Worsened by: Exertion, Coughing Associated symptoms: Cough, Wheezing Similar symptoms before: Diagnosis (pneumonia) Recently seen: Not recently seen - Additional information Additional information: 72-year-old female with a history of atrial fibrillation on Eliquis has developed a cough and congestion with wheezing that is progressively worsened and she is overtly short of breath on arrival to the emergency department. She denies any fever and states that she has not been able to cough anything up. She states that she does not otherwise feel ill. She does have a history of alcohol use. Review of Systems Constitutional: denies: Fever Eyes: denies: Decreased vision Ears: denies: Ear pain Nose: denies: Rhinorrhea / runny nose, Congestion Throat: denies: Sore throat Cardiac: denies: Chest pain / pressure, Palpitations, Pedal edema, Calf pain Respiratory: reports: Dyspnea, Cough, Wheezing GI: denies: Abdominal Pain, Nausea, Vomiting : denies: Dysuria, Frequency Skin: denies: Rash Musculoskeletal: denies: Neck pain, Back pain, Extremity pain Neurologic: denies: Generalized weakness, Focal weakness, Numbness PD PAST MEDICAL HISTORY - Past Medical History Past Medical History: Yes Cardiovascular: Atrial fibrillation Respiratory: Pneumonia Endocrine/Autoimmune: None GI: None : None HEENT: None Psych: None Musculoskeletal: None Derm: None - Past Surgical History Past Surgical History: Yes General: Appendectomy HEENT: Tonsil/Adenoidectomy - Present Medications Home Medications: Ambulatory Orders Medication Instructions Recorded Confirmed Apixaban [Eliquis] 5 mg PO BID 06/16/17 07/08/18 Metoprolol Tartrate 50 mg PO BID 06/16/17 07/08/18 Triamterene/Hydrochlorothiazid 1 tab PO DAILY 06/16/17 07/08/18 [Triamterene-Hctz 37.5-25 mg Tb] diltiaZEM [Cardizem] 120 mg PO BID 10/06/17 07/08/18 Albuterol Sulf [Ventolin Hfa 1 - 2 puffs INH Q4HR PRN #1 inhaler 07/09/18 Inhaler] Azithromycin [Zithromax] 250 mg PO DAILY #6 tablet 07/09/18 predniSONE [Deltasone] 10 mg PO ONCE #26 tablet 07/09/18 - Allergies Allergies/Adverse Reactions: Allergies Allergy/AdvReac Type Severity Reaction Status Date / Time Sulfa (Sulfonamide AdvReac Unknown Rash Verified 07/08/18 20:53 Antibiotics) - Social History Does the pt smoke?: No Smoking Status: Never smoker Does the pt drink ETOH?: No Does the pt have substance abuse?: No - Immunizations Immunizations are current?: Yes - POLST Patient has POLST: No PD ED PE NORMAL - Vitals Vital signs reviewed: Yes - General General: Alert and oriented X 3, Well developed/nourished, Other (tachypneic at rest with audible wheeze. ) - HEENT HEENT: Atraumatic, PERRL, EOMI, Ears normal, Other (dry mucous membranes ) - Neck Neck: Supple, no meningeal sign, No bony TTP - Cardiac Cardiac: No murmur, Other (irregularly irregular rate and rhythm ) - Respiratory Respiratory: Other (tachypneic at rest with audible wheeze. scattered wheezes and rhonchi throughout. ) - Abdomen Abdomen: Soft, Non tender - Back Back: No CVA TTP, No spinal TTP - Derm Derm: Normal color, Warm and dry, No rash - Extremities Extremities: No deformity, No edema - Neuro Neuro: Alert and oriented X 3, commercial stripper 2-12 intact, No motor deficit, No sensory deficit, Normal speech Eye Opening: Spontaneous Motor: Obeys Commands Verbal: Oriented GCS Score: 15 - Psych Psych: Normal mood, Normal affect Results - Vitals Vitals: Vital Signs - 24 hr 07/08/18 07/08/18 07/08/18 20:48 21:11 21:25 Temperature 36.4 C L Heart Rate 83 94 98 Respiratory 28 H 34 H 24 Rate Blood Pressure 158/93 H 119/83 H O2 Saturation 90 L 97 07/08/18 07/08/18 07/09/18 22:17 23:04 00:19 Temperature Heart Rate 80 103 H 90 Respiratory 20 18 20 Rate Blood Pressure 121/84 H 122/71 O2 Saturation 99 97 07/09/18 07/09/18 00:34 02:05 Temperature Heart Rate 98 108 H Respiratory 16 18 Rate Blood Pressure 123/78 O2 Saturation 92 Oxygen O2 Source Room air Oxygen Flow Rate 2 - EKG (time done) 2100 Rate: Rate (enter#) (97) Rhythm: Atrial fibrillation Intervals: Wide QRS Compare to prior EKG: Changed from prior EKG (SPT 10-06-17 the evidence of lateral ischemia is now resovled with normal lateral T waves) Computer interpretation: Agree with computer - Labs Labs: Laboratory Tests 07/08/18 07/08/18 07/08/18 21:05 21:05 21:05 WBC 7.1 RBC 4.36 Hgb 14.6 Hct 44.4 MCV 101.6 H MCH 33.5 H MCHC 32.9 RDW 14.6 Plt Count 236 MPV 10.3 Neut # (Auto) 4.6 Lymph # (Auto) 1.1 L [place] # (Auto) 0.9 Eos # (Auto) 0.4 Baso # (Auto) 0.1 Absolute Nucleated RBC 0.00 Nucleated RBC % 0.0 Sodium 138 Potassium 4.0 Chloride 100 L Carbon Dioxide 28 Anion Gap 10.0 BUN 22 H Creatinine 0.8 Estimated GFR (MDRD) 71 L Glucose 178 H Lactic Acid Calcium 9.4 Total Bilirubin 0.8 AST 20 ALT 21 Alkaline Phosphatase 74 Troponin I < 0.04 Total Protein 8.0 Albumin 4.3 Globulin 3.7 Albumin/Globulin Ratio 1.2 Lipase 37 07/08/18 21:25 WBC RBC Hgb Hct MCV MCH MCHC RDW Plt Count MPV Neut # (Auto) Lymph # (Auto) [place] # (Auto) Eos # (Auto) Baso # (Auto) Absolute Nucleated RBC Nucleated RBC % Sodium Potassium Chloride Carbon Dioxide Anion Gap BUN Creatinine Estimated GFR (MDRD) Glucose Lactic Acid 0.8 Calcium Total Bilirubin AST ALT Alkaline Phosphatase Troponin I Total Protein Albumin Globulin Albumin/Globulin Ratio Lipase - Rads (name of study) 1 view chest Radiology: Prelim report reviewed (Impression: 1. Cardiomegaly progressive compared to the prior study. 2. No acute infiltrates.), EMP read indepedently, See rad report PD MEDICAL DECISION MAKING - ED course Complexity details: reviewed results, re-evaluated patient, considered differential, d/w patient ED course: 72-year-old female with a history of COPD has developed acute wheezing and has improvement with a DuoNeb treatment followed by albuterol and she is given a third treatment of albuterol. She is also given dexamethasone 10 mg IV.The patient requires a third albuterol treatment she has continued improvement and feels like she is ready to go home. She is road tested in the emergency department now for ambulation of the apartment she is continues to have an O2 saturation of 92% on room air. She insists on going home. She does have an inhaler at home to use. Departure - Departure Disposition: , Self Care Clinical Impression: COPD exacerbation Condition: Stable Instructions: ED COPD Flare, ED Bronchitis Asthmatic Follow-Up: Bret Mclain MD [Primary Care Provider] - Prescriptions: Albuterol Sulf [Ventolin Hfa Inhaler] 1 - 2 puffs INH Q4HR PRN #1 inhaler PRN Reason: Shortness Of Air/Wheezing Azithromycin [Zithromax] 250 mg PO DAILY #6 tablet predniSONE [Deltasone] 10 mg PO ONCE #26 tablet
[2018-07-08] MEDS ORDERED: DEXAMETHASONE 10 MG/ML VIAL IVP STA (21:12)
[2018-07-08 21:18] LABS: BASOPHILS # (AUTO) 0.1 10^3/uL (0.0-0.1); EOSINOPHILS # (AUTO) 0.4 10^3/uL (0.0-0.7); EOSINOPHILS % (AUTO) 5.7 %; HGB - HEMOGLOBIN 14.6 g/dL (12.0-16.0); LYMPHOCYTES # (AUTO) 1.1 10^3/uL (1.5-3.5); LYMPHOCYTES % (AUTO) 15.6 %; MEAN CORPUSCULAR HEMOGLOBIN 33.5 pg (27.0-31.0); MEAN CORPUSCULAR HGB CONC 32.9 g/dL (32.0-36.0); MEAN CORPUSCULAR VOLUME 101.6 fL (81.0-99.0); MEAN PLATELET VOLUME 10.3 fL (7.9-10.8); MONOCYTES # (AUTO) 0.9 10^3/uL (0.0-1.0); MONOCYTES % (AUTO) 13.1 %; NEUTROPHILS # (AUTO) 4.6 10^3/uL (1.5-6.6); NEUTROPHILS % (AUTO) 64.6 %; PLT - PLATELET COUNT 236 10^3/uL (130-450); RED BLOOD COUNT 4.36 10^6/uL (4.20-5.40); RED CELL DISTRIBUTION WIDTH 14.6 % (12.0-15.0); WHITE BLOOD COUNT 7.1 x10^3/uL (4.8-10.8)
[2018-07-08 21:28] LABS: ALBUMIN 4.3 g/dL (3.2-5.5); ALBUMIN/GLOBULIN RATIO 1.2 (1.0-2.2); BILIRUBIN,TOTAL 0.8 mg/dL (0.2-1.0); CALCIUM 9.4 mg/dL (8.5-10.3); CREATININE 0.8 mg/dL (0.4-1.0)
--- NOTE | 2018-07-08 21:44 | XRAY Report ---
Reason: chest pain Procedure Date: 07/08/2018 Accession Number: [id number] / [id number] Procedure: XR - Chest 1 View X-Ray CPT Code: 50217 FULL RESULT: EXAM: CHEST RADIOGRAPHY EXAM DATE: 07/08/2018 09:12 PM. CLINICAL HISTORY: Chest pain. COMPARISON: CHEST 2 VIEW PA/LAT 10/01/2012 1:24 AM. TECHNIQUE: 1 view. FINDINGS: Lungs/Pleura: No focal opacities evident. No pleural effusion. No pneumothorax. Mediastinum: The heart is globally enlarged. No signs for congestive failure. No pleural effusions. Other: None. IMPRESSION: 1. Cardiomegaly progressive compared to the prior study. 2. No acute infiltrates. RADIA
[2018-07-08] MEDS ORDERED: ALBUTEROL NEB 2.5 MG/3 ML INH STA (22:45)
[2018-07-08] MEDS ORDERED: SODIUM CHLORIDE 0.9% 1,000 ML IV ONE (22:45)
[2018-07-09] MEDS ORDERED: ALBUTEROL NEB 2.5 MG/3 ML INH STA (00:26)
[2018-07-09 02:05] VITALS: BP 123/78
== END 2018-07-09 03:20 | disposition home or self-care (01) ==
LOC: ED 20:45
DX: J44.9 Chronic obstructive pulmonary disease, unspecified (principal); I48.91 Unspecified atrial fibrillation; Z79.01 Long term (current) use of anticoagulants
CPT/HCPCS: 36415; 71045; 80053; 83605; 83690; 84484; 85025; 87040; 93005; 94640; 94664; 96361; 96374; 99284

== ENCOUNTER 2018-07-11 17:41 | Inpatient (IN) | payer MEDICARE, MEDICAID ==
[2018-07-11] MEDS ORDERED: IPRATROPIUM/ALBUTEROL 3 ML NEB INH STA (18:22)
--- NOTE | 2018-07-11 18:28 | ED Physician Documentation ---
PD HPI URI - Stated complaint Stated Complaint: SOA - Chief complaint Chief Complaint: Resp - History obtained from History obtained from: Patient, Family - History of Present Illness Timing - onset: Other (This is a 72-year-old woman whose been sick for about 8 days with a cough that is actually improving but worsening shortness of breath. She was seen here 3 days ago with clear chest x-ray. She had borderline pulse oximetries. She was diagnosed with bronchitis and sent home on Zithromax and prednisone and albuterol. Despite this treatment she is continued to worsen with more shortness of breath but again the cough is improving. She denies any chest pain, fevers, or pedal edema. She has a history of chronic atrial fibrillation and is on a novel oral anticoagulant. She denies any other heart issues.) Review of Systems Ten Systems: 10 systems reviewed and negative Constitutional: denies: Fever, Chills Nose: denies: Rhinorrhea / runny nose, Congestion Cardiac: denies: Chest pain / pressure, Palpitations Respiratory: reports: Dyspnea, Cough PD PAST MEDICAL HISTORY - Past Medical History Cardiovascular: Atrial fibrillation Respiratory: Pneumonia Endocrine/Autoimmune: None GI: None : None HEENT: None Psych: None Musculoskeletal: None Derm: None - Past Surgical History Past Surgical History: Yes General: Cholecystectomy, Appendectomy HEENT: Tonsil/Adenoidectomy - Present Medications Home Medications: Ambulatory Orders Medication Instructions Recorded Confirmed Apixaban [Eliquis] 5 mg PO BID 06/16/17 07/08/18 RX: Metoprolol Tartrate 50 mg PO BID 06/16/17 07/08/18 Triamterene/Hydrochlorothiazid 1 tab PO DAILY 06/16/17 07/08/18 [Triamterene-Hctz 37.5-25 mg Tb] RX: diltiaZEM [Cardizem] 120 mg PO BID 10/06/17 07/08/18 RX: Albuterol Sulf [Ventolin Hfa 1 - 2 puffs INH Q4HR PRN #1 inhaler 07/09/18 Inhaler] RX: Azithromycin [Zithromax] 250 mg PO DAILY #6 tablet 07/09/18 RX: predniSONE [Deltasone] 10 mg PO ONCE #26 tablet 07/09/18 - Allergies Allergies/Adverse Reactions: Allergies Allergy/AdvReac Type Severity Reaction Status Date / Time Sulfa (Sulfonamide AdvReac Unknown Rash Verified 07/11/18 17:47 Antibiotics) - Social History Does the pt smoke?: No Smoking Status: Never smoker Does the pt drink ETOH?: No Does the pt have substance abuse?: No - Family History Family history: reports: Non contributory - Immunizations Immunizations are current?: No Immunizations: TDAP >10years/unknown - POLST Patient has POLST: No PD ED PE NORMAL - Vitals Vital signs reviewed: Yes - General General: Alert and oriented X 3, Other (She is visibly short of breath, had a pulse oximetry of 87 in triage but better on a nasal cannula.) - HEENT HEENT: PERRL, EOMI - Neck Neck: Supple, no meningeal sign, No bony TTP, No JVD - Cardiac Cardiac: No murmur, Other (Irregularly irregular) - Respiratory Respiratory: Other (Visibly short of breath, speaking in short sentences, tight and wheezy throughout.) - Abdomen Abdomen: Soft, Non tender - Back Back: No CVA TTP, No spinal TTP - Derm Derm: Normal color, Warm and dry - Extremities Extremities: No edema, No calf tenderness / cord - Neuro Neuro: Alert and oriented X 3, Normal speech - Psych Psych: Normal mood, Normal affect Results - Vitals Vitals: Vital Signs - 24 hr 07/11/18 07/11/18 07/11/18 17:46 17:47 18:35 Temperature 36.8 C Heart Rate 105 H 96 Respiratory 26 H 24 Rate Blood Pressure 135/109 H O2 Saturation 90 L 95 96 07/11/18 07/11/18 07/11/18 19:20 19:22 19:35 Temperature Heart Rate 113 H 102 H 98 Respiratory 28 H 14 24 Rate Blood Pressure 120/87 H 117/81 H O2 Saturation 99 97 07/11/18 07/11/18 07/11/18 19:40 19:45 20:23 Temperature Heart Rate 114 H 95 108 H Respiratory 28 H 29 H 27 H Rate Blood Pressure 113/74 110/79 O2 Saturation 96 97 07/11/18 07/11/18 20:28 20:35 Temperature Heart Rate 118 H 108 H Respiratory 24 27 H Rate Blood Pressure 112/75 117/84 H O2 Saturation 100 Oxygen O2 Source Nasal cannula Oxygen Flow Rate 2 - EKG (time done) 1851 Rate: Rate (enter#) (131) Rhythm: Atrial fibrillation (with pvcs) [place]: Normal QRS: LVH Ischemia: Normal ST segments Computer interpretation: Agree with computer - Labs Labs: Laboratory Tests 07/11/18 07/11/18 07/11/18 18:42 18:42 18:42 WBC 12.8 H RBC 4.27 Hgb 14.4 Hct 43.1 MCV 100.9 H MCH 33.6 H MCHC 33.3 RDW 14.7 Plt Count 229 MPV 9.8 Neut # (Auto) 10.2 H Lymph # (Auto) 1.3 L [place] # (Auto) 1.2 H Eos # (Auto) 0.0 Baso # (Auto) 0.0 Absolute Nucleated RBC 0.00 Nucleated RBC % 0.0 VBG pH VBG pCO2 VBG pO2 VBG HCO3 VBG Total CO2 VBG O2 Saturation VBG Base Excess Sodium 135 Potassium 4.0 Chloride 96 L Carbon Dioxide 28 Anion Gap 11.0 BUN 31 H Creatinine 0.6 Estimated GFR (MDRD) 98 Glucose 133 H Calcium 9.5 Total Bilirubin 0.6 AST 29 ALT 42 Alkaline Phosphatase 65 Troponin I < 0.04 B-Natriuretic Peptide Total Protein 7.9 Albumin 4.4 Globulin 3.5 Albumin/Globulin Ratio 1.3 Lipase 25 Influenza A (Rapid) Influenza B (Rapid) RSV Rapid 07/11/18 07/11/18 07/11/18 18:42 18:42 20:36 WBC RBC Hgb Hct MCV MCH MCHC RDW Plt Count MPV Neut # (Auto) Lymph # (Auto) [place] # (Auto) Eos # (Auto) Baso # (Auto) Absolute Nucleated RBC Nucleated RBC % VBG pH 7.429 H VBG pCO2 46.3 VBG pO2 50.4 H VBG HCO3 30.0 H VBG Total CO2 31.4 H VBG O2 Saturation 85.5 H VBG Base Excess 4.8 H Sodium Potassium Chloride Carbon Dioxide Anion Gap BUN Creatinine Estimated GFR (MDRD) Glucose Calcium Total Bilirubin AST ALT Alkaline Phosphatase Troponin I B-Natriuretic Peptide 275 H Total Protein Albumin Globulin Albumin/Globulin Ratio Lipase Influenza A (Rapid) Negative Influenza B (Rapid) Negative RSV Rapid 07/11/18 20:36 WBC RBC Hgb Hct MCV MCH MCHC RDW Plt Count MPV Neut # (Auto) Lymph # (Auto) [place] # (Auto) Eos # (Auto) Baso # (Auto) Absolute Nucleated RBC Nucleated RBC % VBG pH VBG pCO2 VBG pO2 VBG HCO3 VBG Total CO2 VBG O2 Saturation VBG Base Excess Sodium Potassium Chloride Carbon Dioxide Anion Gap BUN Creatinine Estimated GFR (MDRD) Glucose Calcium Total Bilirubin AST ALT Alkaline Phosphatase Troponin I B-Natriuretic Peptide Total Protein Albumin Globulin Albumin/Globulin Ratio Lipase Influenza A (Rapid) Influenza B (Rapid) RSV Rapid Negative - Rads (name of study) 2v chest Radiology: EMP read contemporaneously (mild cardiomegaly) PD MEDICAL DECISION MAKING - ED course ED course: This is a 72-year-old woman with chronic atrial fibrillation who presents with a bronchitis type illness. She is already been seen in the emergency department and is on steroids and Zithromax. Despite this she continues to worsen and today checks in with hypoxemia and loud audible wheezing. She does not appear fluid overloaded. She is in atrial fibrillation and is in rapid ventricular response here, Which was treated with divided doses of diltiazem IV. She was administered nebulizers here with slight improvement in the wheezing but still visibly short of breath and I trialed her off of oxygen with persistent room air hypoxemia. I discussed with her that in the long run metoprolol may not be the best choice for rate control given the wheezing if this is not a self-limited illness. Given the persistent hypoxemia she will be admitted for further evaluation and treatment and I called Dr. Vinson at 8:18 PM. - Critical Care Time(min): 35 Time Includes: Direct patient care, Review records, Reassess patient, Document care, Coordinate care, Medical consult, Family consult for tx dec Data interpretation: Labs, Pulse ox Procedures excluded from critical care time: EKG Departure - Departure Disposition: ED Place in Observation Clinical Impression: Atrial fibrillation with RVR, Bronchitis, Hypoxemia Condition: Serious
[2018-07-11 18:48] LABS: VBG BASE EXCESS 4.8 mmol/L (-2 - +2); VBG PCO2 46.3 mmHg (41-51); VBG PH 7.429 (7.31-7.41); VBG PO2 50.4 mmHg (25-47); VBG TOTAL CO2 31.4 mmol/L (24-29)
[2018-07-11 18:50] LABS: BASOPHILS % (AUTO) 0.2 %; HGB - HEMOGLOBIN 14.4 g/dL (12.0-16.0); LYMPHOCYTES # (AUTO) 1.3 10^3/uL (1.5-3.5); LYMPHOCYTES % (AUTO) 10.2 %; MEAN CORPUSCULAR HEMOGLOBIN 33.6 pg (27.0-31.0); MEAN CORPUSCULAR HGB CONC 33.3 g/dL (32.0-36.0); MEAN CORPUSCULAR VOLUME 100.9 fL (81.0-99.0); MEAN PLATELET VOLUME 9.8 fL (7.9-10.8); MONOCYTES # (AUTO) 1.2 10^3/uL (0.0-1.0); MONOCYTES % (AUTO) 9.5 %; NEUTROPHILS # (AUTO) 10.2 10^3/uL (1.5-6.6); NEUTROPHILS % (AUTO) 80.1 %; PLT - PLATELET COUNT 229 10^3/uL (130-450); RED BLOOD COUNT 4.27 10^6/uL (4.20-5.40); RED CELL DISTRIBUTION WIDTH 14.7 % (12.0-15.0); WHITE BLOOD COUNT 12.8 x10^3/uL (4.8-10.8)
[2018-07-11 19:00] LABS: ALBUMIN 4.4 g/dL (3.2-5.5); ALBUMIN/GLOBULIN RATIO 1.3 (1.0-2.2); BILIRUBIN,TOTAL 0.6 mg/dL (0.2-1.0); CALCIUM 9.5 mg/dL (8.5-10.3); CREATININE 0.6 mg/dL (0.4-1.0); TOTAL PROTEIN 7.9 g/dL (6.7-8.2)
[2018-07-11] MEDS ORDERED: diltiaZEM INJ 5 MG/ML VIAL IVP STA ×2 (19:07→20:16)
--- NOTE | 2018-07-11 19:34 | XRAY Report ---
Reason: dyspnea Procedure Date: 07/11/2018 Accession Number: [id number] / [id number] Procedure: XR - Chest 2 View X-Ray CPT Code: 30483 FULL RESULT: EXAM: CHEST RADIOGRAPHY EXAM DATE: 07/11/2018 07:08 PM. CLINICAL HISTORY: Dyspnea and cough. Increased shortness of breath. COMPARISON: 07/08/2018. TECHNIQUE: 2 views. FINDINGS: Lungs/Pleura: No focal opacities evident. No pleural effusion. No pneumothorax. Normal volumes. Mediastinum: The heart size is mildly enlarged. Other: Mild osteopenia is present. IMPRESSION: Mild cardiomegaly as before. RADIA
[2018-07-11] MEDS ORDERED: ALBUTEROL NEB 2.5 MG/3 ML INH STA (20:16)
[2018-07-11] MEDS ORDERED: guaiFENesin/CODEINE 5 ML UDC PO STA (20:16)
[2018-07-11] MEDS ORDERED: cefTRIAXone 1 GM in SODIUM CHLORIDE 0.9% MINIBAG 100 ML IV STA (20:18)
[2018-07-11] MEDS ORDERED: methylPREDNISolone SUCCINATE 125 MG/2 ML VIAL IVP STA (20:18)
[2018-07-11] MEDS ORDERED: ACETAMINOPHEN 325 MG TABLET PO PRN (20:47)
[2018-07-11] MEDS ORDERED: HYDROcod/ACETAM 5/325 MG TABLET PO PRN (20:47)
[2018-07-11] MEDS ORDERED: DIGOXIN 500 MCG/2 ML AMP IVP STA (20:51)
[2018-07-11] MEDS ORDERED: LEVALBUTEROL 1.25 MG/3 ML NEB INH STA (20:54)
[2018-07-11] MEDS ORDERED: methylPREDNISolone SUCCINATE 40 MG/ML VIAL IVP STA (20:54)
[2018-07-11] MEDS ORDERED: LEVALBUTEROL 1.25 MG/3 ML NEB INH PRN (21:35)
[2018-07-11] MEDS ORDERED: diltiaZEM CD 120 MG CAPSULE PO ONE (22:51)
[2018-07-11] MEDS ORDERED: ALBUTEROL NEB 2.5 MG/3 ML INH ONE (23:28)
--- NOTE | 2018-07-12 01:36 | HISTORY & PHYSICAL EXAMINATION ---
Chief Complaint - Chief Complaint Chief Complaint: SOB with wheezing, cough, URI symptoms Respiratory Admission HPI - Admitted From Admitted from: ED - History Obtained From Records Reviewed: RN notes reviewed, Old records reviewed History obtained from: Patient, Family Exam limitations: No limitations - History of Present Illness Severity at the worst: reports: Severe Associated Pain Quality Description: reports: Other Context of Onset: reports: Exertion, Inspiration, Rest Timing: reports: Constant Improved with: reports: Oxygen Worsened by: reports: Exertion, Inspiration Associated symptoms: reports: Feeling faint / dizzy, General weakness, Palpitations HPI Comment/Other: This is a 72-year-old woman whose been sick for about 8 days with a cough that is actually improving but worsening shortness of breath. She was seen here 3 days ago with clear chest x-ray. Repeat CXR with CM only. She had borderline pulse oximetries. She was diagnosed with bronchitis and sent home on Zithromax and prednisone and albuterol. Despite this treatment she is continued to worsen with more shortness of breath but again the cough is improving. She denies any chest pain, fevers, or pedal edema. She has a history of chronic atrial fibrillation and is on Eliquis. BNP 275, rvr afib 130's. hx DCM w/ EF 45% (09/26). PMH/PSH - Past Medical History Cardiovascular: positive: Atrial fibrillation Respiratory: positive: Pneumonia Endocrine/Autoimmune: positive: None GI: positive: None : positive: None HEENT: positive: None Psych: positive: None Musculoskeletal: positive: None Derm: positive: None MRSA Hx?: No - Past Surgical History General: positive: Cholecystectomy, Appendectomy HEENT: positive: Tonsil/Adenoidectomy Social & Family Hx - Social History Does the pt smoke?: No Smoking Status: Never smoker Does the pt drink ETOH?: No Does the pt have substance abuse?: No - POLST Patient has POLST: No Meds/Allgy - Home Medications Home Medications: Ambulatory Orders Medication Instructions Recorded Confirmed Apixaban [Eliquis] 5 mg PO BID 06/16/17 07/08/18 RX: Metoprolol Tartrate 50 mg PO BID 06/16/17 07/08/18 Triamterene/Hydrochlorothiazid 1 tab PO DAILY 06/16/17 07/08/18 [Triamterene-Hctz 37.5-25 mg Tb] RX: diltiaZEM [Cardizem] 120 mg PO BID 10/06/17 07/08/18 RX: Albuterol Sulf [Ventolin Hfa 1 - 2 puffs INH Q4HR PRN #1 inhaler 07/09/18 Inhaler] RX: Azithromycin [Zithromax] 250 mg PO DAILY #6 tablet 07/09/18 RX: predniSONE [Deltasone] 10 mg PO ONCE #26 tablet 07/09/18 - Allergies Allergies/Adverse Reactions: Allergies Allergy/AdvReac Type Severity Reaction Status Date / Time Sulfa (Sulfonamide AdvReac Unknown Rash Verified 07/11/18 17:47 Antibiotics) Review of Systems - Constitutional Constitutional: reports: Fatigue, Chills, Weakness - Eyes Eyes: denies: Blurred vision, Dipolpia - Ears, Nose & Throat Ears, Nose & Throat: denies: Tinnitus, Vertigo, Postnasal drainage - Cardiovascular Cariovascular: reports: Irregular heart rate. denies: Palpitations, Chest pain, Edema, Lightheadedness, Syncope, Exertional dyspnea - Respiratory Respiratory: reports: Cough, Sputum production, Wheezing, SOB at rest, SOB with exertion, Pleuritic pain. denies: Stridor - Gastrointestinal Gastrointestinal: denies: Abdominal pain, Abdominal distention, Constipation, Diarrhea, Nausea, Vomiting, Coffee grounds emesis, Reflux/heartburn - Genitourinary Genitourinary: denies: Dysuria, Frequency, Urgency - Musculoskeletal Musculoskeletal: denies: Muscle pain, Muscle aches, Muscle weakness - Integumentary Integumentary: denies: Rash, Pruritis, Lesions - Neurological Neurological: denies: General weakness, Focal weakness, Dizziness, Memory problems, Abnormal gait, Seizures - Psychiatric Psychiatric: denies: Depression, Anxiety, Hallucinations - Endocrine Endocrine: denies: Polyuria, Polydypsia, Polyphagia - All Other Systems All Other Systems: reports: Reviewed and negative Prior Level of Functionality: Independent with home ADL's. Exam - Vital Signs Reviewed Vital Signs: Yes Vital Signs: Vital Signs x48h Temp Pulse Pulse Resp BP BP Pulse Ox 07/11/18 21:40 36.4 C L 95 24 128/77 97 07/11/18 20:49 114 H 26 H 126/74 96 07/11/18 20:35 108 H 27 H 117/84 H 07/11/18 20:28 118 H 24 112/75 100 07/11/18 20:23 108 H 27 H 07/11/18 19:45 95 29 H 110/79 97 07/11/18 19:40 114 H 28 H 113/74 96 07/11/18 19:35 98 24 117/81 H 97 07/11/18 19:22 102 H 14 120/87 H 99 07/11/18 19:20 113 H 28 H 07/11/18 18:35 96 24 96 07/11/18 17:47 95 07/11/18 17:46 36.8 C 105 H 26 H 135/109 H 90 L - Physical Exam General Appearance: positive: Alert, Moderate distress Eyes Bilateral: positive: Normal inspection, PERRL, EOMI ENT: positive: ENT inspection nml, Pharynx nml, No signs of dehydration Neck: positive: Nml inspection, Thyroid nml, No JVD, Trachea midline. negative: Thyromegaly, Carotid bruit Respiratory: positive: Chest non-tender, Wheezes, Rhonchi Cardiovascular: positive: No murmur, No gallop, Irregularly irregular. negative: PMI displaced laterally, JVD present, Diastolic murmur, Gallop/S4 Peripheral Pulses: positive: 2+ Abdomen: positive: Non-tender, No organomegaly, Nml bowel sounds, No distention. negative: Tenderness Skin: positive: Color nml, No rash, Warm Neurologic/Psychiatric: positive: Oriented x3, CN's nml (2-12), Mood/affect nml. negative: Slurred/abnml speech, Depressed mood/affect Results - Lab Results Lab results reviewed: Yes Fish Bones: 07/12/18 05:46 07/12/18 05:46 Other Lab Results: Lab Results x24hrs 07/11/18 07/11/18 07/11/18 Range/Units 21:00 20:36 20:36 WBC (4.8-10.8) x10^3/uL RBC (4.20-5.40) 10^6/uL Hgb (12.0-16.0) g/dL Hct (37.0-47.0) % MCV (81.0-99.0) fL MCH (27.0-31.0) pg MCHC (32.0-36.0) g/dL RDW (12.0-15.0) % Plt Count (130-450) 10^3/uL MPV (7.9-10.8) fL Neut # (Auto) (1.5-6.6) 10^3/uL Lymph # (Auto) (1.5-3.5) 10^3/uL [place] # (Auto) (0.0-1.0) 10^3/uL Eos # (Auto) (0.0-0.7) 10^3/uL Baso # (Auto) (0.0-0.1) 10^3/uL Absolute Nucleated RBC x10^3/uL Nucleated RBC % /100WBC VBG pH (7.31-7.41) VBG pCO2 (41-51) mmHg VBG pO2 (25-47) mmHg VBG HCO3 (23-28) mmol/L VBG Total CO2 (24-29) mmol/L VBG O2 Saturation (60-80) % VBG Base Excess (-2 - +2) mmol/L Sodium (135-145) mmol/L Potassium (3.5-5.0) mmol/L Chloride (101-111) mmol/L Carbon Dioxide (21-32) mmol/L Anion Gap (6-13) BUN (6-20) mg/dL Creatinine (0.4-1.0) mg/dL Estimated GFR (MDRD) (>89) Glucose (70-100) mg/dL Calcium (8.5-10.3) mg/dL Total Bilirubin (0.2-1.0) mg/dL AST (10-42) IU/L ALT (10-60) IU/L Alkaline Phosphatase (42-121) IU/L Troponin I (<0.49) ng/mL B-Natriuretic Peptide (5-100) pg/mL Total Protein (6.7-8.2) g/dL Albumin (3.2-5.5) g/dL Globulin (2.1-4.2) g/dL Albumin/Globulin Ratio (1.0-2.2) Lipase (22-51) U/L TSH 4.21 (0.34-5.60) uIU/mL Influenza A (Rapid) Negative (Negative) Influenza B (Rapid) Negative (Negative) RSV Rapid Negative (Negative) 07/11/18 07/11/18 07/11/18 Range/Units 18:42 18:42 18:42 WBC (4.8-10.8) x10^3/uL RBC (4.20-5.40) 10^6/uL Hgb (12.0-16.0) g/dL Hct (37.0-47.0) % MCV (81.0-99.0) fL MCH (27.0-31.0) pg MCHC (32.0-36.0) g/dL RDW (12.0-15.0) % Plt Count (130-450) 10^3/uL MPV (7.9-10.8) fL Neut # (Auto) (1.5-6.6) 10^3/uL Lymph # (Auto) (1.5-3.5) 10^3/uL [place] # (Auto) (0.0-1.0) 10^3/uL Eos # (Auto) (0.0-0.7) 10^3/uL Baso # (Auto) (0.0-0.1) 10^3/uL Absolute Nucleated RBC x10^3/uL Nucleated RBC % /100WBC VBG pH 7.429 H (7.31-7.41) VBG pCO2 46.3 (41-51) mmHg VBG pO2 50.4 H (25-47) mmHg VBG HCO3 30.0 H (23-28) mmol/L VBG Total CO2 31.4 H (24-29) mmol/L VBG O2 Saturation 85.5 H (60-80) % VBG Base Excess 4.8 H (-2 - +2) mmol/L Sodium (135-145) mmol/L Potassium (3.5-5.0) mmol/L Chloride (101-111) mmol/L Carbon Dioxide (21-32) mmol/L Anion Gap (6-13) BUN (6-20) mg/dL Creatinine (0.4-1.0) mg/dL Estimated GFR (MDRD) (>89) Glucose (70-100) mg/dL Calcium (8.5-10.3) mg/dL Total Bilirubin (0.2-1.0) mg/dL AST (10-42) IU/L ALT (10-60) IU/L Alkaline Phosphatase (42-121) IU/L Troponin I < 0.04 (<0.49) ng/mL B-Natriuretic Peptide 275 H (5-100) pg/mL Total Protein (6.7-8.2) g/dL Albumin (3.2-5.5) g/dL Globulin (2.1-4.2) g/dL Albumin/Globulin Ratio (1.0-2.2) Lipase (22-51) U/L TSH (0.34-5.60) uIU/mL Influenza A (Rapid) (Negative) Influenza B (Rapid) (Negative) RSV Rapid (Negative) 07/11/18 07/11/18 Range/Units 18:42 18:42 WBC 12.8 H (4.8-10.8) x10^3/uL RBC 4.27 (4.20-5.40) 10^6/uL Hgb 14.4 (12.0-16.0) g/dL Hct 43.1 (37.0-47.0) % MCV 100.9 H (81.0-99.0) fL MCH 33.6 H (27.0-31.0) pg MCHC 33.3 (32.0-36.0) g/dL RDW 14.7 (12.0-15.0) % Plt Count 229 (130-450) 10^3/uL MPV 9.8 (7.9-10.8) fL Neut # (Auto) 10.2 H (1.5-6.6) 10^3/uL Lymph # (Auto) 1.3 L (1.5-3.5) 10^3/uL [place] # (Auto) 1.2 H (0.0-1.0) 10^3/uL Eos # (Auto) 0.0 (0.0-0.7) 10^3/uL Baso # (Auto) 0.0 (0.0-0.1) 10^3/uL Absolute Nucleated RBC 0.00 x10^3/uL Nucleated RBC % 0.0 /100WBC VBG pH (7.31-7.41) VBG pCO2 (41-51) mmHg VBG pO2 (25-47) mmHg VBG HCO3 (23-28) mmol/L VBG Total CO2 (24-29) mmol/L VBG O2 Saturation (60-80) % VBG Base Excess (-2 - +2) mmol/L Sodium 135 (135-145) mmol/L Potassium 4.0 (3.5-5.0) mmol/L Chloride 96 L (101-111) mmol/L Carbon Dioxide 28 (21-32) mmol/L Anion Gap 11.0 (6-13) BUN 31 H (6-20) mg/dL Creatinine 0.6 (0.4-1.0) mg/dL Estimated GFR (MDRD) 98 (>89) Glucose 133 H (70-100) mg/dL Calcium 9.5 (8.5-10.3) mg/dL Total Bilirubin 0.6 (0.2-1.0) mg/dL AST 29 (10-42) IU/L ALT 42 (10-60) IU/L Alkaline Phosphatase 65 (42-121) IU/L Troponin I (<0.49) ng/mL B-Natriuretic Peptide (5-100) pg/mL Total Protein 7.9 (6.7-8.2) g/dL Albumin 4.4 (3.2-5.5) g/dL Globulin 3.5 (2.1-4.2) g/dL Albumin/Globulin Ratio 1.3 (1.0-2.2) Lipase 25 (22-51) U/L TSH (0.34-5.60) uIU/mL Influenza A (Rapid) (Negative) Influenza B (Rapid) (Negative) RSV Rapid (Negative) - Diagnostic Imaging Results Diagnostic Imaging Results: positive: Final report reviewed (CXR w/o any infiltrates, only CM, 3 days ago CXR was also negative.) - EKG Results EKG Interpreted Independently: Yes EKG Comparison: positive: No prior EKG (RVR afib at 131 bpm with LVH) Sepsis Event Note (H) - Evaluation Current Stage of Sepsis: Ruled out (CXR shows no pulmonary infiltrates) - Sepsis Criteria Sepsis Criteria: Recorded Heart Rate greater than 90 bpm, Respiratory: Increasing oxygen requirements, WBC count greater than 12,000 or less than 4000 Impression/Plan - Problem List Problem List: 1. SIRS 2. Acute reactive airway disease 3. Acute hypoxemic respiratory failure sec to above 4. Acute decompensation systolic heart failure (Hx DCM with prior EF 45%) 5. Acute viral syndrome with previous URI 6. RVR afib AC on Eliquis with CHADSVasc 4pts (4.8% stoke risk/year) 7. Macrocytosis Plan: Admit to [facility] for acute RAD with component of decompensated systolic HF with prior hx DCM in past with prior echo done in 09/26 showing moderate LAE with mild ESTRELLA and moderate MR. Trops x 1 negative, ECG shows RVR afib at 131 bpm, LVH. BNP 275. Would place on lasix 40 mg IV daily along with rate controlling with IV dig load 50% @15 mcg/kg x 1, then 25% of initial load q6 hr x2, would d/c lopressor as this may be exacerbating bronchospasms and may need to be placed on just on titrating doses of cardizem orally once Rate controlled better and BP's hold up. Continue with IV solumedrol, xoponex instead of albuterol, pulmicort, singulair, zoya TID, pulm toilet, resp viral panel flu/RSV. TSH, Mg, and ECHO to follow. Macrocytosis, b12/FA level. Her GWRG-HF risk score is 49 points (1-5% predicted in-hospital all-cause mortality). ADHERE shows low risk. However no prior palliative care consult for systolic HF. Palliative care consultation for symptoms mgmt, goal of care, and trajectory of illness with respect for patients beliefs and values. DVT/GI ppx to continue. Code Status: FULL code Core Measures - Anticipated LOS I expect patient to be DC'd or transferred within 96 hours.: Yes - Issues Hospital Issues and Management Plan: Aggressive med mgmt, rate control with IV digoxin, steroids, nebs, ECHO, labs - DVT/VTE - Prophylaxis VTE/DVT Device ordered at admit?: Yes VTE/DVT Prophylaxis med ordered at admit?: Yes - Stroke - Rehab Assessment Rehab services assessment to be ordered?: No Not Ordered - Medical Reason: Not indicated - AMI - Statin at Admit Aspirin Prescribed on Admit: No Not Ordered - Medical Reason: Not indicated
[2018-07-12] MEDS: APIXABAN 5 MG TABLET PO SCH ×3 (02:47→21:17)
[2018-07-12] MEDS: FAMOTIDINE 20 MG TABLET PO SCH ×3 (02:47→21:17)
[2018-07-12] MEDS: MONTELUKAST 10 MG TABLET PO SCH ×2 (02:47→21:17)
[2018-07-12] MEDS: SODIUM CHLORIDE FLUSH 0.9% 10 ML SYRINGE IVP SCH ×3 (04:01→16:45)
[2018-07-12] MEDS: DIGOXIN 500 MCG/2 ML AMP IVP SCH ×2 (04:26→09:00)
[2018-07-12 05:54] LABS: BASOPHILS % (AUTO) 0.1 %; HGB - HEMOGLOBIN 13.8 g/dL (12.0-16.0); LYMPHOCYTES # (AUTO) 0.5 10^3/uL (1.5-3.5); LYMPHOCYTES % (AUTO) 6.2 %; MEAN CORPUSCULAR HEMOGLOBIN 33.3 pg (27.0-31.0); MEAN CORPUSCULAR HGB CONC 32.5 g/dL (32.0-36.0); MEAN CORPUSCULAR VOLUME 102.5 fL (81.0-99.0); MEAN PLATELET VOLUME 9.8 fL (7.9-10.8); MONOCYTES # (AUTO) 0.2 10^3/uL (0.0-1.0); MONOCYTES % (AUTO) 2.2 %; NEUTROPHILS # (AUTO) 7.5 10^3/uL (1.5-6.6); NEUTROPHILS % (AUTO) 91.5 %; PLT - PLATELET COUNT 201 10^3/uL (130-450); RED BLOOD COUNT 4.14 10^6/uL (4.20-5.40); RED CELL DISTRIBUTION WIDTH 14.5 % (12.0-15.0); WHITE BLOOD COUNT 8.1 x10^3/uL (4.8-10.8)
[2018-07-12 06:05] LABS: ALBUMIN 3.8 g/dL (3.2-5.5); CALCIUM 9.1 mg/dL (8.5-10.3); CREATININE 0.7 mg/dL (0.4-1.0); PHOSPHORUS 3.3 mg/dL (2.5-4.6)
[2018-07-12] MEDS ORDERED: LEVALBUTEROL 1.25 MG/3 ML NEB INH SCH (07:00)
[2018-07-12] MEDS: BUDESONIDE 0.5 MG/2 ML NEB INH SCH ×2 (08:46→19:30)
[2018-07-12] MEDS: diltiaZEM CD 240 MG CAPSULE PO SCH (08:58)
[2018-07-12] MEDS ORDERED: FUROSEMIDE 40 MG/4 ML VIAL IVP SCH ×2 (09:00)
[2018-07-12] MEDS: cefTRIAXone 1 GM in SODIUM CHLORIDE 0.9% MINIBAG 100 ML IV SCH (09:05)
[2018-07-12] MEDS: POLYETHYLENE GLYCOL 3350 17 GM PACKET PO SCH (09:09)
[2018-07-12] MEDS: AZITHROMYCIN INJ 500 MG in SODIUM CHLORIDE 0.9% 250 ML IV SCH (10:23)
[2018-07-12] MEDS ORDERED: METOPROLOL 5 MG/5 ML VIAL IVP PRN (10:36)
[2018-07-12] MEDS: METOPROLOL TARTRATE 50 MG TABLET PO SCH ×2 (11:46→21:17)
--- NOTE | 2018-07-12 15:42 | PROVIDER PROGRESS NOTE ---
Subjective - Prog Note Date Prog Note Date: 07/12/18 - Subjective Pt reports feeling: Improved Subjective: pt report her cough is better, and her heart rate is better controlled. she still feel some SOB. she denies chest pain, fever, chill. Current Medications - Current Medications Current Medications: Active Medications Acetaminophen (Tylenol) 650 mg PO Q4HR PRN PRN Reason: Pain 1 to 4 Hydrocodone Bitart/Acetaminophen ([place] 5/325) 1 tab PO Q4HR PRN PRN Reason: Pain 5 to 7 Apixaban (Eliquis) 5 mg PO BID [facility] Last Admin: 07/12/18 08:59 Dose: 5 mg Budesonide (Pulmicort) 0.5 mg INH RTBID [facility] Last Admin: 07/12/18 08:46 Dose: 0.5 mg Diltiazem HCl (Cardizem Cd) 240 mg PO DAILY [facility] Last Admin: 07/12/18 08:58 Dose: 240 mg Famotidine (Pepcid) 20 mg PO BID [facility] Last Admin: 07/12/18 08:59 Dose: 20 mg Furosemide (Lasix Inj 40 Mg Vial) 20 mg IVP DAILY [facility] Last Admin: 07/12/18 09:09 Dose: 20 mg Furosemide (Lasix Inj 20mg Vial) 20 mg IVP BIDDIURETIC [facility] Guaifenesin/Codeine Phosphate (Robitussin Ac) 5 ml PO Q4HR PRN PRN Reason: Cough Azithromycin 500 mg/ Sodium (Chloride) 250 mls @ 250 mls/hr IV DAILY [facility] Last Infusion: 07/12/18 11:48 Dose: Infused Ceftriaxone Sodium 1 gm/ (Sodium Chloride) 100 mls @ 200 mls/hr IV DAILY [facility] Last Infusion: 07/12/18 10:12 Dose: Infused Ipratropium [place] (Atrovent) 0.5 mg INH RTQ4H PRN PRN Reason: Shortness of Air/Wheezing Levalbuterol HCl (Xopenex) 1.25 mg INH Q4H PRN PRN Reason: Shortness of Air/Wheezing Methylprednisolone (Solu-Medrol (40mg Vial)) 30 mg IVP TID [facility] Metoprolol Tartrate (Lopressor Inj) 5 mg IVP Q6H PRN PRN Reason: Hypertensive Emergency Last Admin: 07/12/18 11:14 Dose: 5 mg Metoprolol Tartrate (Lopressor) 50 mg PO BID [facility] Last Admin: 07/12/18 11:46 Dose: 50 mg Montelukast Sodium (Singulair) 10 mg PO QPM [facility] Last Admin: 07/12/18 02:47 Dose: Not Given Polyethylene Glycol (Miralax) 17 gm PO DAILY [facility] Last Admin: 07/12/18 09:09 Dose: Not Given Sodium Chloride (Normal Saline Flush 0.9%) 10 ml IVP PRN PRN PRN Reason: NEEDED PER PROVIDER ORDERS Sodium Chloride (Normal Saline Flush 0.9%) 10 ml IVP 0100,0900,1700 [facility] Last Admin: 07/12/18 04:27 Dose: 10 ml Apixaban [Eliquis] 5 mg PO BID 06/16/17 Metoprolol Tartrate 50 mg PO BID 06/16/17 Triamterene/Hydrochlorothiazid [Triamterene-Hctz 37.5-25 mg Tb] 1 tab PO DAILY 06/16/17 diltiaZEM [Cardizem] 120 mg PO BID 10/06/17 Objective - Vital Signs/Intake & Output Reviewed Vital Signs: Yes Vital Signs: Vital Signs x48h Temp Pulse Pulse Resp BP BP BP 07/12/18 12:05 123 H 118/79 07/12/18 11:46 116/73 07/12/18 11:44 98 118/79 118/76 07/12/18 11:34 124 H 122/73 07/12/18 11:14 128 H 128/73 128/73 07/12/18 08:47 68 18 07/12/18 07:54 36.3 C L 71 16 127/85 H Pulse Ox 07/12/18 12:05 07/12/18 11:46 07/12/18 11:44 07/12/18 11:34 07/12/18 11:14 07/12/18 08:47 07/12/18 07:54 98 Intake & Output: Intake & Output 07/09/18 07/10/18 07/11/18 07/12/18 23:59 23:59 23:59 23:59 Intake Total 100 1160 Balance 100 1160 - Objective General Appearance: positive: No acute distress, Alert. negative: Lethargic Eyes Bilateral: positive: Normal inspection, PERRL, No lid inflammation, Conjunctivae nml ENT: positive: ENT inspection nml, Pharynx nml, No signs of dehydration. negative: Purulent nasal drainage, Pharyngeal erythema, Oral lesions Neck: positive: Nml inspection, Thyroid nml, No JVD, Trachea midline. negative: Thyromegaly, Lymphadenopathy (R), Lymphadenopathy (L), Stiff neck, Swelling/bruising, Tracheal deviation Respiratory: positive: Chest non-tender, No respiratory distress, Wheezes. negative: Rales, Rhonchi Cardiovascular: positive: Regular rate & rhythm, No murmur, No gallop. negative: Irregularly irregular, Extrasystoles, Tachycardia, Bradycardia, JVD present, Systolic murmur, Diastolic murmur Peripheral Pulses: 2+ Radial (R), 2+ Radial (L), 2+ Dorsalis pedis (R), 2+ Dorsalis pedis (L) Abdomen: positive: Non-tender, No organomegaly, Nml bowel sounds, No distention. negative: Tenderness, Guarding, Rebound Back: positive: Nml inspection. negative: CVA tenderness (R), CVA tenderness (L) Skin: positive: Color nml, No rash, Warm, Dry. negative: Cyanosis, Diaphoresis, Pallor Extremities: positive: Non-tender, Full ROM, Nml appearance. negative: Calf tenderness, Joint swelling, Sofia's sign/cords Neurologic/Psychiatric: positive: Oriented x3, Motor nml, Sensation nml, Mood/affect nml. negative: Weakness, Sensory loss, Facial droop, Slurred/abnml speech, Depressed mood/affect - Lab Results Fish Bones: 07/12/18 05:46 07/12/18 05:46 Other Labs: Lab Results x24hrs 07/12/18 07/12/18 07/11/18 Range/Units 05:46 05:46 21:00 WBC 8.1 (4.8-10.8) x10^3/uL RBC 4.14 L (4.20-5.40) 10^6/uL Hgb 13.8 (12.0-16.0) g/dL Hct 42.4 (37.0-47.0) % MCV 102.5 H (81.0-99.0) fL MCH 33.3 H (27.0-31.0) pg MCHC 32.5 (32.0-36.0) g/dL RDW 14.5 (12.0-15.0) % Plt Count 201 (130-450) 10^3/uL MPV 9.8 (7.9-10.8) fL Neut # (Auto) 7.5 H (1.5-6.6) 10^3/uL Lymph # (Auto) 0.5 L (1.5-3.5) 10^3/uL Perkins # (Auto) 0.2 (0.0-1.0) 10^3/uL Eos # (Auto) 0.0 (0.0-0.7) 10^3/uL Baso # (Auto) 0.0 (0.0-0.1) 10^3/uL Absolute Nucleated RBC 0.00 x10^3/uL Nucleated RBC % 0.0 /100WBC VBG pH (7.31-7.41) VBG pCO2 (41-51) mmHg VBG pO2 (25-47) mmHg VBG HCO3 (23-28) mmol/L VBG Total CO2 (24-29) mmol/L VBG O2 Saturation (60-80) % VBG Base Excess (-2 - +2) mmol/L Sodium 137 (135-145) mmol/L Potassium 4.1 (3.5-5.0) mmol/L Chloride 98 L (101-111) mmol/L Carbon Dioxide 29 (21-32) mmol/L Anion Gap 10.0 (6-13) BUN 26 H (6-20) mg/dL Creatinine 0.7 (0.4-1.0) mg/dL Estimated GFR (MDRD) 82 L (>89) Glucose 234 H (70-100) mg/dL Calcium 9.1 (8.5-10.3) mg/dL Phosphorus 3.3 (2.5-4.6) mg/dL Total Bilirubin (0.2-1.0) mg/dL AST (10-42) IU/L ALT (10-60) IU/L Alkaline Phosphatase (42-121) IU/L Troponin I (<0.49) ng/mL B-Natriuretic Peptide (5-100) pg/mL Total Protein (6.7-8.2) g/dL Albumin 3.8 (3.2-5.5) g/dL Globulin (2.1-4.2) g/dL Albumin/Globulin Ratio (1.0-2.2) Lipase (22-51) U/L TSH 4.21 (0.34-5.60) uIU/mL Influenza A (Rapid) (Negative) Influenza B (Rapid) (Negative) RSV Rapid (Negative) 07/11/18 07/11/18 07/11/18 Range/Units 20:36 20:36 18:42 WBC (4.8-10.8) x10^3/uL RBC (4.20-5.40) 10^6/uL Hgb (12.0-16.0) g/dL Hct (37.0-47.0) % MCV (81.0-99.0) fL MCH (27.0-31.0) pg MCHC (32.0-36.0) g/dL RDW (12.0-15.0) % Plt Count (130-450) 10^3/uL MPV (7.9-10.8) fL Neut # (Auto) (1.5-6.6) 10^3/uL Lymph # (Auto) (1.5-3.5) 10^3/uL [place] # (Auto) (0.0-1.0) 10^3/uL Eos # (Auto) (0.0-0.7) 10^3/uL Baso # (Auto) (0.0-0.1) 10^3/uL Absolute Nucleated RBC x10^3/uL Nucleated RBC % /100WBC VBG pH 7.429 H (7.31-7.41) VBG pCO2 46.3 (41-51) mmHg VBG pO2 50.4 H (25-47) mmHg VBG HCO3 30.0 H (23-28) mmol/L VBG Total CO2 31.4 H (24-29) mmol/L VBG O2 Saturation 85.5 H (60-80) % VBG Base Excess 4.8 H (-2 - +2) mmol/L Sodium (135-145) mmol/L Potassium (3.5-5.0) mmol/L Chloride (101-111) mmol/L Carbon Dioxide (21-32) mmol/L Anion Gap (6-13) BUN (6-20) mg/dL Creatinine (0.4-1.0) mg/dL Estimated GFR (MDRD) (>89) Glucose (70-100) mg/dL Calcium (8.5-10.3) mg/dL Phosphorus (2.5-4.6) mg/dL Total Bilirubin (0.2-1.0) mg/dL AST (10-42) IU/L ALT (10-60) IU/L Alkaline Phosphatase (42-121) IU/L Troponin I (<0.49) ng/mL B-Natriuretic Peptide (5-100) pg/mL Total Protein (6.7-8.2) g/dL Albumin (3.2-5.5) g/dL Globulin (2.1-4.2) g/dL Albumin/Globulin Ratio (1.0-2.2) Lipase (22-51) U/L TSH (0.34-5.60) uIU/mL Influenza A (Rapid) Negative (Negative) Influenza B (Rapid) Negative (Negative) RSV Rapid Negative (Negative) 07/11/18 07/11/18 07/11/18 Range/Units 18:42 18:42 18:42 WBC (4.8-10.8) x10^3/uL RBC (4.20-5.40) 10^6/uL Hgb (12.0-16.0) g/dL Hct (37.0-47.0) % MCV (81.0-99.0) fL MCH (27.0-31.0) pg MCHC (32.0-36.0) g/dL RDW (12.0-15.0) % Plt Count (130-450) 10^3/uL MPV (7.9-10.8) fL Neut # (Auto) (1.5-6.6) 10^3/uL Lymph # (Auto) (1.5-3.5) 10^3/uL [place] # (Auto) (0.0-1.0) 10^3/uL Eos # (Auto) (0.0-0.7) 10^3/uL Baso # (Auto) (0.0-0.1) 10^3/uL Absolute Nucleated RBC x10^3/uL Nucleated RBC % /100WBC VBG pH (7.31-7.41) VBG pCO2 (41-51) mmHg VBG pO2 (25-47) mmHg VBG HCO3 (23-28) mmol/L VBG Total CO2 (24-29) mmol/L VBG O2 Saturation (60-80) % VBG Base Excess (-2 - +2) mmol/L Sodium 135 (135-145) mmol/L Potassium 4.0 (3.5-5.0) mmol/L Chloride 96 L (101-111) mmol/L Carbon Dioxide 28 (21-32) mmol/L Anion Gap 11.0 (6-13) BUN 31 H (6-20) mg/dL Creatinine 0.6 (0.4-1.0) mg/dL Estimated GFR (MDRD) 98 (>89) Glucose 133 H (70-100) mg/dL Calcium 9.5 (8.5-10.3) mg/dL Phosphorus (2.5-4.6) mg/dL Total Bilirubin 0.6 (0.2-1.0) mg/dL AST 29 (10-42) IU/L ALT 42 (10-60) IU/L Alkaline Phosphatase 65 (42-121) IU/L Troponin I < 0.04 (<0.49) ng/mL B-Natriuretic Peptide 275 H (5-100) pg/mL Total Protein 7.9 (6.7-8.2) g/dL Albumin 4.4 (3.2-5.5) g/dL Globulin 3.5 (2.1-4.2) g/dL Albumin/Globulin Ratio 1.3 (1.0-2.2) Lipase 25 (22-51) U/L TSH (0.34-5.60) uIU/mL Influenza A (Rapid) (Negative) Influenza B (Rapid) (Negative) RSV Rapid (Negative) 07/11/18 Range/Units 18:42 WBC 12.8 H (4.8-10.8) x10^3/uL RBC 4.27 (4.20-5.40) 10^6/uL Hgb 14.4 (12.0-16.0) g/dL Hct 43.1 (37.0-47.0) % MCV 100.9 H (81.0-99.0) fL MCH 33.6 H (27.0-31.0) pg MCHC 33.3 (32.0-36.0) g/dL RDW 14.7 (12.0-15.0) % Plt Count 229 (130-450) 10^3/uL MPV 9.8 (7.9-10.8) fL Neut # (Auto) 10.2 H (1.5-6.6) 10^3/uL Lymph # (Auto) 1.3 L (1.5-3.5) 10^3/uL [place] # (Auto) 1.2 H (0.0-1.0) 10^3/uL Eos # (Auto) 0.0 (0.0-0.7) 10^3/uL Baso # (Auto) 0.0 (0.0-0.1) 10^3/uL Absolute Nucleated RBC 0.00 x10^3/uL Nucleated RBC % 0.0 /100WBC VBG pH (7.31-7.41) VBG pCO2 (41-51) mmHg VBG pO2 (25-47) mmHg VBG HCO3 (23-28) mmol/L VBG Total CO2 (24-29) mmol/L VBG O2 Saturation (60-80) % VBG Base Excess (-2 - +2) mmol/L Sodium (135-145) mmol/L Potassium (3.5-5.0) mmol/L Chloride (101-111) mmol/L Carbon Dioxide (21-32) mmol/L Anion Gap (6-13) BUN (6-20) mg/dL Creatinine (0.4-1.0) mg/dL Estimated GFR (MDRD) (>89) Glucose (70-100) mg/dL Calcium (8.5-10.3) mg/dL Phosphorus (2.5-4.6) mg/dL Total Bilirubin (0.2-1.0) mg/dL AST (10-42) IU/L ALT (10-60) IU/L Alkaline Phosphatase (42-121) IU/L Troponin I (<0.49) ng/mL B-Natriuretic Peptide (5-100) pg/mL Total Protein (6.7-8.2) g/dL Albumin (3.2-5.5) g/dL Globulin (2.1-4.2) g/dL Albumin/Globulin Ratio (1.0-2.2) Lipase (22-51) U/L TSH (0.34-5.60) uIU/mL Influenza A (Rapid) (Negative) Influenza B (Rapid) (Negative) RSV Rapid (Negative) ABX Reporting Has patient been on IV antibiotics over the past 48 hours?: Yes Sepsis Event Note (H) - Evaluation Current Stage of Sepsis: Ruled out (CXR shows no pulmonary infiltrates) - Sepsis Criteria Sepsis Criteria: Recorded Heart Rate greater than 90 bpm, Respiratory: Increasing oxygen requirements, WBC count greater than 12,000 or less than 4000 Assessment/Plan - Problem List (1) Atrial fibrillation with RVR Impression: now pt's HR is controlled at around 80, per tele report. pt denies palpitation, feel SOB is better than before. continue Cardizem 240mg PO resume home Metoprolol IV of Metoprolol PRN continue tele and vital monitor (2) Bronchitis Impression: pt present cough with wheezing, elevated WBC, and SOB continue antibiotics for bronchitis possible pneumonia continue breath treatment O2 supplement as needed (3) Systolic CHF Impression: pt has EF 45% in the previous ECHO study, CXR reveals cardiaemgaly, pt present SOB, and slight elevated BNP. ECHO is pending Lasix 20 mg bid resume home Metoprolol add Lisinopril (4) COPD (chronic obstructive pulmonary disease) Impression: pt is present SOB, cough, and hypoxia, hx of COPD, and wheezing lung sound Levalbuterol PRN Ipro PRN start on lower dosage of Solu-medrol supplement O2 as needed vital monitor (5) HTN (hypertension) Impression: stable, continue Metoprolol and Lisinopril
[2018-07-12] MEDS ORDERED: IPRATROPIUM 0.2 MG/ML NEB INH PRN (15:55)
[2018-07-12] MEDS: FUROSEMIDE 20 MG/2 ML VIAL IVP SCH (16:45)
[2018-07-12] MEDS: methylPREDNISolone SUCCINATE 40 MG/ML VIAL IVP SCH ×2 (16:45→22:12)
[2018-07-12] MEDS: guaiFENesin/CODEINE 5 ML UDC PO PRN (20:20)
[2018-07-12] MEDS: SODIUM CHLORIDE FLUSH 0.9% 10 ML SYRINGE IVP PRN (22:12)
[2018-07-13] MEDS: guaiFENesin/CODEINE 5 ML UDC PO PRN (03:53)
[2018-07-13 05:03] LABS: BASOPHILS % (AUTO) 0.1 %; HGB - HEMOGLOBIN 14.1 g/dL (12.0-16.0); LYMPHOCYTES # (AUTO) 0.8 10^3/uL (1.5-3.5); LYMPHOCYTES % (AUTO) 7.7 %; MEAN CORPUSCULAR HEMOGLOBIN 33.1 pg (27.0-31.0); MEAN CORPUSCULAR HGB CONC 32.3 g/dL (32.0-36.0); MEAN CORPUSCULAR VOLUME 102.4 fL (81.0-99.0); MEAN PLATELET VOLUME 9.8 fL (7.9-10.8); MONOCYTES # (AUTO) 0.5 10^3/uL (0.0-1.0); MONOCYTES % (AUTO) 4.6 %; NEUTROPHILS # (AUTO) 9.5 10^3/uL (1.5-6.6); NEUTROPHILS % (AUTO) 87.6 %; PLT - PLATELET COUNT 216 10^3/uL (130-450); RED BLOOD COUNT 4.25 10^6/uL (4.20-5.40); RED CELL DISTRIBUTION WIDTH 14.3 % (12.0-15.0); WHITE BLOOD COUNT 10.8 x10^3/uL (4.8-10.8)
[2018-07-13 05:13] LABS: ALBUMIN 3.6 g/dL (3.2-5.5); BILIRUBIN,TOTAL 0.8 mg/dL (0.2-1.0); CALCIUM 9.1 mg/dL (8.5-10.3); CREATININE 0.6 mg/dL (0.4-1.0); TOTAL PROTEIN 7.2 g/dL (6.7-8.2)
[2018-07-13] MEDS: methylPREDNISolone SUCCINATE 40 MG/ML VIAL IVP SCH (06:24)
[2018-07-13] MEDS: SODIUM CHLORIDE FLUSH 0.9% 10 ML SYRINGE IVP PRN (06:26)
[2018-07-13] MEDS: SODIUM CHLORIDE FLUSH 0.9% 10 ML SYRINGE IVP SCH ×2 (06:26→08:55)
[2018-07-13] MEDS: FUROSEMIDE 20 MG/2 ML VIAL IVP SCH (06:27)
[2018-07-13 08:06] VITALS: BP 134/85
[2018-07-13] MEDS: cefTRIAXone 1 GM in SODIUM CHLORIDE 0.9% MINIBAG 100 ML IV SCH (08:48)
[2018-07-13] MEDS: METOPROLOL TARTRATE 50 MG TABLET PO SCH (08:55)
[2018-07-13] MEDS: diltiaZEM CD 240 MG CAPSULE PO SCH (08:56)
[2018-07-13] MEDS: APIXABAN 5 MG TABLET PO SCH (08:56)
[2018-07-13] MEDS: FAMOTIDINE 20 MG TABLET PO SCH (08:56)
[2018-07-13] MEDS: POLYETHYLENE GLYCOL 3350 17 GM PACKET PO SCH (08:57)
[2018-07-13] MEDS ORDERED: LISINOPRIL 5 MG TABLET PO SCH (09:00)
[2018-07-13] MEDS: AZITHROMYCIN INJ 500 MG in SODIUM CHLORIDE 0.9% 250 ML IV SCH (09:31)
[2018-07-13] MEDS ORDERED: SPIRONOLACTONE 25 MG TABLET PO SCH (11:00)
--- NOTE | 2018-07-13 11:10 | Discharge Plan ---
Discharge Plan Disposition: Home, Self Care Condition: Poor Prescriptions: Cephalexin [Keflex] 500 mg PO BID #10 capsule Lisinopril [Zestril] 5 mg PO DAILY #10 tablet Saccharomyces Boulardii [Florastor] 250 mg PO BID #10 capsule Spironolactone [Aldactone] 25 mg PO DAILY #10 tablet Diet: Regular Activity Restrictions: Activity as Tolerated Shower Restrictions: No (fall precaution) Instruction Topics: Atrial Fibrillation, ED Dyspnea Shortness of Breath, Bronchitis Acute Dc, Pneumonia, Cephalexin tablets or capsules, Lisinopril tablets, Spironolactone tablets Additional Instructions or Follow Up instructions: you may followup your PCP in one week, followup your animal surgeon as out-pt. Pt was found to have afib with RVR, now your Heart rate is controlled. You had cough, wheezing and shortness of breath, you were found to have bronchitis/pneumonia, antibiotics is prescribed for you to finish the antibiotics course. Your ECHO reveals mild reduced systolic heart function, Lisinopril and spironolactone are prescribed for you, please followup your PCP and animal surgeon for continuing management. Should your symptoms return or worsen, you may present ER or call 911 or your PCP for help. No Smoking: If you smoke, Please STOP! Call for help. Follow-up with: Bret Mclain MD [Primary Care Provider] -
--- NOTE | 2018-07-13 11:21 | DISCHARGE SUMMARY ---
Discharge Summary Discharge Date: 07/13/18 Discharging Provider: ARCOS Primary Care Provider: Jose Vasquez Condition at Discharge: Poor Discharge Disposition: 01 Home, Self Care Discharge Facility Name: home - DIAGNOSES Admission Diagnoses: (1) Atrial fibrillation with RVR (2) Bronchitis (3) Systolic CHF (4) COPD (chronic obstructive pulmonary disease) (5) HTN (hypertension) Discharge Diagnoses with Status of Each Condition: 1) Atrial fibrillation with RVR controlled and stable. 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 continue Eliquis (2) Bronchitis, possible pneumonia pt has 95% sat on room air. nurse did not document pt's sat on room air. I checked it by myself when pt is on room air. Pt has no fever, chill. cough is controlled. pt is prescribed antibiotics to finish the antibiotics course. (3) Systolic CHF EF is 50%. 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 ECHO reveal pt has RVSP 48mmhg, moderate pulmonary HTN. 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 - HPI History of Present Illness: refer from Dr. Vinson's HPI on 07/12/18 as the following This is a 72-year-old woman whose been sick for about 8 days with a cough that is actually improving but worsening shortness of breath. She was seen here 3 days ago with clear chest x-ray. Repeat CXR with CM only. She had borderline pulse oximetries. She was diagnosed with bronchitis and sent home on Zithromax and prednisone and albuterol. Despite this treatment she is continued to worsen with more shortness of breath but again the cough is improving. She denies any chest pain, fevers, or pedal edema. She has a history of chronic atrial fibrillation and is on Eliquis. BNP 275, rvr afib 130's. hx DCM w/ EF 45% - HOSPITAL COURSE Hospital Course: pt was admitted for cough, wheezing, SOB and afib with RVR. Pt's HR is controlled with Cardizem and metoprolol. pt was found to have bronchitis, and possible pneumonia. pt was treated with antibiotics, lower dosage of steroid and breath treatment. after treatment pt became 95% sat on room air, pt's cough is controlled, SOB is improved. pt had ECHO which reveals 50% EF and 48 mmhg RVSP. pt is prescribed spironolactone, Lisinopril, and antibiotics. - ALLERGIES Allergies/Adverse Reactions: Allergies Allergy/AdvReac Type Severity Reaction Status Date / Time Sulfa (Sulfonamide AdvReac Unknown Rash Verified 07/11/18 17:47 Antibiotics) - MEDICATIONS Home Medications: Ambulatory Orders Medication Instructions Recorded Confirmed Apixaban [Eliquis] 5 mg PO BID 06/16/17 07/12/18 Metoprolol Tartrate 50 mg PO BID 06/16/17 07/12/18 Triamterene/Hydrochlorothiazid 1 tab PO DAILY 06/16/17 07/12/18 [Triamterene-Hctz 37.5-25 mg Tb] diltiaZEM [Cardizem] 120 mg PO BID 10/06/17 07/12/18 Albuterol Sulf [Ventolin Hfa 1 - 2 puffs INH Q4HR PRN #1 inhaler 07/09/18 07/12/18 Inhaler] Azithromycin [Zithromax] 250 mg PO DAILY #6 tablet 07/09/18 07/12/18 predniSONE [Deltasone] 10 mg PO ONCE #26 tablet 07/09/18 07/12/18 Cephalexin [Keflex] 500 mg PO BID #10 capsule 07/13/18 Lisinopril [Zestril] 5 mg PO DAILY #10 tablet 07/13/18 Saccharomyces Boulardii [Florastor] 250 mg PO BID #10 capsule 07/13/18 Spironolactone [Aldactone] 25 mg PO DAILY #10 tablet 07/13/18 - PHYSICAL EXAM AT DISCHARGE General Appearance: positive: No acute distress, Alert. negative: Lethargic Eyes Bilateral: positive: Normal inspection, PERRL, No lid inflammation, Conjunctivae nml ENT: positive: ENT inspection nml, Pharynx nml, No signs of dehydration. negative: Purulent nasal drainage, Pharyngeal erythema, Oral lesions Neck: positive: Nml inspection, Thyroid nml, No JVD, Trachea midline. negative: Thyromegaly, Lymphadenopathy (R), Lymphadenopathy (L), Stiff neck, Swelling/bruising, Tracheal deviation Respiratory: positive: Chest non-tender, No respiratory distress. negative: Wheezes, Rales, Rhonchi Cardiovascular: positive: Regular rate & rhythm, No murmur, No gallop. negative: Irregularly irregular, Extrasystoles, Tachycardia, Bradycardia, JVD present, Systolic murmur, Diastolic murmur Peripheral Pulses: positive: 2+ Abdomen: positive: Non-tender, No organomegaly, Nml bowel sounds, No distention. negative: Tenderness, Guarding, Rebound Back: positive: Nml inspection. negative: CVA tenderness (R), CVA tenderness (L) Skin: positive: Color nml, No rash, Warm, Dry. negative: Cyanosis, Diaphoresis, Pallor Extremities: positive: Non-tender, Full ROM, Nml appearance. negative: Calf tenderness, Joint swelling, Sofia's sign/cords Neurologic/Psychiatric: positive: Oriented x3, Sensation nml, Mood/affect nml. 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 Pt was found to have afib with RVR, now your Heart rate is controlled. You had cough, wheezing and shortness of breath, you were found to have bronchitis/pneumonia, antibiotics is prescribed for you to finish the antibiotics course. Your ECHO reveals mild reduced systolic heart function, Lisinopril and spironolactone are prescribed for you, please followup your PCP and reverberatory furnace supervisor for continuing management. Should your symptoms return or worsen, you may present ER or call 911 or your PCP for help. - TIME SPENT Time Spent in Discharge (Minutes): 55
[2018-07-14] MEDS ORDERED: predniSONE 20 MG TABLET PO SCH (08:00)
== END 2018-07-13 13:26 | disposition home or self-care (01) | DRG 190 ==
LOC: ED 17:41 → OBS 20:47 → OBSVTOIN 07-12 14:16 → MS3 07-12 17:32
PROVIDERS: ADMIT Family Medicine; ATTEND Nurse Practitioner Gerontology
DX: J06.9 Acute upper respiratory infection, unspecified (principal); J44.0 Chronic obstructive pulmonary disease with (acute) lower respiratory infection; J96.01 Acute respiratory failure with hypoxia; J18.9 Pneumonia, unspecified organism; I50.20 Unspecified systolic (congestive) heart failure; D75.89 Other specified diseases of blood and blood-forming organs; I48.2 Chronic atrial fibrillation; J20.9 Acute bronchitis, unspecified; I11.0 Hypertensive heart disease with heart failure; I27.20 Pulmonary hypertension, unspecified; I34.0 Nonrheumatic mitral (valve) insufficiency; Z51.5 Encounter for palliative care; Z79.01 Long term (current) use of anticoagulants; Z87.01 Personal history of pneumonia (recurrent); Z79.51 Long term (current) use of inhaled steroids
CPT/HCPCS: 36415; 71046; 80053; 80069; 82803; 83690; 83735; 83880; 84443; 84484; 85025; 87275; 87276; 87280; 93005; 93306; 94640; 96365; 96366; 96367; 96375; 96376; 99285; 99291

== ENCOUNTER 2022-05-19 09:15 | Outpatient (CLI) | payer MEDICARE, MEDICAID ==
--- NOTE | 2022-05-19 18:29 | XRAY Report ---
PROCEDURE: Chest 2 View X-Ray INDICATIONS: ATRIAL FIBRILLATION,UNSPECIFIED TECHNIQUE: 2 views of the chest were acquired. COMPARISON: Chest x-ray 07/11/2018 FINDINGS: Surgical changes and devices: None. Lungs and pleura: No pleural effusions or pneumothorax. Lungs are clear. Mediastinum: Mediastinal contours are normal. Heart size is enlarged. Bones and chest wall: No suspicious bony abnormalities. Soft tissues appear unremarkable. IMPRESSION: No acute pulmonary process. Reviewed by: Sherley Barnard MD on 05/19/2022 6:27 PM PST Approved by: Sherley Barnard MD on 05/19/2022 6:27 PM [facility] Station ID: [id number]
== END 2022-05-19 09:16 | disposition home or self-care (01) ==
LOC: DI 09:15
PROVIDERS: ATTEND Internal Medicine Cardiovascular Disease
DX: I48.91 Unspecified atrial fibrillation (principal); I34.0 Nonrheumatic mitral (valve) insufficiency; R06.09 Other forms of dyspnea
CPT/HCPCS: 81599; 83880

== ENCOUNTER 2022-09-05 00:54 | Outpatient (CLI) | payer MEDICARE, MEDICAID | END 2022-09-05 23:59 | disposition critical access hospital (66) | LOC: EMS 00:54 | DX: R06.00 Dyspnea, unspecified (principal); R07.9 Chest pain, unspecified; I48.91 Unspecified atrial fibrillation | CPT/HCPCS: A0425; A0427 ==

== ENCOUNTER 2022-09-05 01:04 | Emergency (ER) | payer MEDICARE, MEDICAID ==
--- NOTE | 2022-09-05 01:14 | ED Physician Documentation ---
PD HPI CHEST PAIN - Stated complaint Stated Complaint: CHEST PX - History obtained from History obtained from: Patient, EMS - Additional information Additional information: HPI is from patient with some contribution from EMS. Patient is brought in by ambulance for chest pain which she describes as tightness, across the low anterior chest. She rates the pain as 10 out of 10 and associated with shortness of breath. She says the pain started at approximately 9 PM tonight while she was awake lying in bed.She denies history of similar symptoms regarding the chest tightness, although she says she has had similar, though milder, shortness of breath for which she has seen both cardiology and pulmonology (she says no diagnosis has yet been achieved regarding the dyspnea, but that she has upcoming tests including pulmonary function tests and what sounds like home pulse oximetry by her description). She does not use oxygen at home. She does not have any pulmonary diagnoses such as COPD, does not use inhalers nor nebulizers. EMS found patient to have a pulse ox of 94% on room air, improved to 97% with 2 L nasal cannula oxygen. Patient has chronic A-fib and takes Eliquis, found to be in atrial fibrillation with rate ranging from 80s to 120s by EMS. EMS reports fingerstick blood sugar of 170. EMS administered 324 mg of aspirin p.o., sublingual nitroglycerin x2, and 225 cc of normal saline IV had been infused by the time patient arrived to ED. The patient reports that these measures decrease the chest pain from 10-7. Patient denies cough, denies fever. Review of Systems Constitutional: denies: Fever, Chills, Sweats Cardiac: reports: Chest pain / pressure. denies: Palpitations, Pedal edema, Calf pain Respiratory: reports: Dyspnea. denies: Cough, Hemoptysis, Wheezing GI: reports: Reviewed and negative : denies: Dysuria, Frequency Skin: reports: Reviewed and negative Musculoskeletal: reports: Reviewed and negative Neurologic: reports: Reviewed and negative PD PAST MEDICAL HISTORY - Past Medical History Cardiovascular: Atrial fibrillation Respiratory: Pneumonia Endocrine/Autoimmune: None GI: None : None HEENT: None Psych: None Musculoskeletal: None Derm: None - Past Surgical History Past Surgical History: Yes General: Cholecystectomy, Appendectomy Cardiovascular: Valve replacement (MVR) HEENT: Tonsil/Adenoidectomy - Present Medications Home Medications: Ambulatory Orders Medication Instructions Recorded Confirmed Apixaban [Eliquis] 5 mg PO BID 06/16/17 09/05/22 Metoprolol Tartrate 50 mg PO BID 06/16/17 09/05/22 diltiaZEM [Cardizem] 120 mg PO BID 10/06/17 09/05/22 Albuterol Sulf [Ventolin Hfa 1 - 2 puffs INH Q4HR PRN #1 inhaler 07/09/18 09/05/22 Inhaler] Spironolactone [Aldactone] 25 mg PO DAILY #10 tablet 07/13/18 09/05/22 Albuterol Sulf [Ventolin Hfa 1 - 2 puffs INH Q4HR PRN #1 each 09/05/22 Inhaler] Valsartan [Diovan] 09/05/22 predniSONE [Deltasone] 40 mg PO DAILY 3 Days #6 tablet 09/05/22 - Allergies Allergies/Adverse Reactions: Allergies Allergy/AdvReac Type Severity Reaction Status Date / Time Sulfa (Sulfonamide AdvReac Unknown Rash Verified 09/05/22 01:14 Antibiotics) - Social History Does the pt smoke?: No Smoking Status: Former smoker Does the pt drink ETOH?: No Does the pt have substance abuse?: No - Immunizations Immunizations are current?: No Immunizations: TDAP >10years/unknown - POLST Patient has POLST: No PD ED PE NORMAL - Vitals Vital signs reviewed: Yes - General General: Alert and oriented X 3, No acute distress, Well developed/nourished - HEENT HEENT: Moist mucous membranes - Neck Neck: Supple, no meningeal sign - Respiratory Respiratory: No respiratory distress - Abdomen Abdomen: Soft, Non tender, Non distended - Derm Derm: Normal color, Warm and dry - Extremities Extremities: No edema - Neuro Neuro: Alert and oriented X 3 PD ED PE EXPANDED - Cardiac Cardiac: Tachy, Irregularly irregular - Respiratory Respiratory: Decreased breath sounds (decreased breath sounds with poor air flow all lung rock) Results - Vitals Vitals: Vital Signs - 24 hr 09/05/22 09/05/22 09/05/22 01:14 01:18 01:48 Temperature 36.5 C 36.5 C Heart Rate 125 H 124 H 86 Respiratory 28 H 28 H 34 H Rate Blood Pressure 120/80 120/80 116/78 O2 Saturation 95 96 97 If not protocol 2 : Oxygen Flow, liters/minute 09/05/22 09/05/22 09/05/22 02:18 02:30 03:00 Temperature Heart Rate 79 82 82 Respiratory 30 H 29 H 25 H Rate Blood Pressure 115/78 116/78 105/80 O2 Saturation 99 99 100 If not protocol 2 2 : Oxygen Flow, liters/minute 09/05/22 09/05/22 09/05/22 03:30 04:00 04:30 Temperature Heart Rate 98 103 H 104 H Respiratory 22 24 33 H Rate Blood Pressure 121/73 115/93 H 115/72 O2 Saturation 98 98 98 If not protocol 2 2 2 : Oxygen Flow, liters/minute 09/05/22 09/05/22 09/05/22 04:40 05:00 05:30 Temperature Heart Rate 99 98 104 H Respiratory 18 19 18 Rate Blood Pressure 112/80 96/73 O2 Saturation 97 88 L If not protocol 2 2 : Oxygen Flow, liters/minute 09/05/22 09/05/22 09/05/22 05:45 06:00 06:46 Temperature 36.5 C Heart Rate 111 H 97 48 L Respiratory 20 21 14 Rate Blood Pressure 111/87 H 120/44 L O2 Saturation 100 96 If not protocol 2 2 : Oxygen Flow, liters/minute 09/05/22 06:59 Temperature Heart Rate 108 H Respiratory 26 H Rate Blood Pressure 119/89 H O2 Saturation 93 If not protocol : Oxygen Flow, liters/minute Oxygen O2 Source Room air - EKG (time done) No standard instances EKG releavant findings:: EKG personally interpreted by author of this note. Relevant findings are: Rate: Rate (enter#) (88) Rhythm: Atrial fibrillation [place]: Normal Ischemia: Normal ST segments - Labs Labs: Laboratory Tests 09/05/22 09/05/22 09/05/22 01:25 01:25 01:25 WBC 7.9 RBC 4.05 L Hgb 13.5 Hct 42.8 MCV 105.7 H MCH 33.3 H MCHC 31.5 L RDW 13.2 Plt Count 263 MPV 10.8 Neut # (Auto) 6.1 Lymph # (Auto) 1.0 L Luna # (Auto) 0.5 Eos # (Auto) 0.2 Baso # (Auto) 0.1 Absolute Nucleated RBC 0.00 Nucleated RBC % 0.0 Sodium 137 Potassium 4.1 Chloride 99 L Carbon Dioxide 29 Anion Gap 9.0 BUN 18 Creatinine 0.7 Estimated GFR (MDRD) 81 L Glucose 164 H Calcium 9.1 Total Bilirubin 0.5 AST 21 ALT 18 Alkaline Phosphatase 52 Troponin I High Sens 5.0 B-Natriuretic Peptide Total Protein 7.0 Albumin 3.9 Globulin 3.1 Albumin/Globulin Ratio 1.3 Lipase 38 Nasal Adenovirus (PCR) Nasal B. parapertussis DNA (PCR) Nasal Coronavir 229E PCR Nasal Coronavir HKU1 PCR Nasal Coronavir NL63 PCR Nasal Coronavir OC43 PCR Nasal Enterovir/Rhinovir PCR Nasal Influenza B PCR Nasal Influenza A PCR Nasal Parainfluen 1 PCR Nasal Parainfluen 2 PCR Nasal Parainfluen 3 PCR Nasal Parainfluen 4 PCR Nasal RSV (PCR) Nasal B.pertussis DNA PCR Nasal C.pneumoniae (PCR) Kadeem Human Metapneumo PCR Nasal M.pneumoniae (PCR) Nasal SARS-CoV-2 (PCR) 09/05/22 09/05/22 09/05/22 01:25 02:10 05:53 WBC RBC Hgb Hct MCV MCH MCHC RDW Plt Count MPV Neut # (Auto) Lymph # (Auto) Luna # (Auto) Eos # (Auto) Baso # (Auto) Absolute Nucleated RBC Nucleated RBC % Sodium Potassium Chloride Carbon Dioxide Anion Gap BUN Creatinine Estimated GFR (MDRD) Glucose Calcium Total Bilirubin AST ALT Alkaline Phosphatase Troponin I High Sens 4.8 B-Natriuretic Peptide 192 H Total Protein Albumin Globulin Albumin/Globulin Ratio Lipase Nasal Adenovirus (PCR) NOT DETECTED Nasal B. parapertussis DNA (PCR) NOT DETECTED Nasal Coronavir 229E PCR NOT DETECTED Nasal Coronavir HKU1 PCR NOT DETECTED Nasal Coronavir NL63 PCR NOT DETECTED Nasal Coronavir OC43 PCR NOT DETECTED Nasal Enterovir/Rhinovir PCR NOT DETECTED Nasal Influenza B PCR NOT DETECTED Nasal Influenza A PCR NOT DETECTED Nasal Parainfluen 1 PCR NOT DETECTED Nasal Parainfluen 2 PCR NOT DETECTED Nasal Parainfluen 3 PCR NOT DETECTED Nasal Parainfluen 4 PCR NOT DETECTED Nasal RSV (PCR) NOT DETECTED Nasal B.pertussis DNA PCR NOT DETECTED Nasal C.pneumoniae (PCR) NOT DETECTED Kadeem Human Metapneumo PCR NOT DETECTED Nasal M.pneumoniae (PCR) NOT DETECTED Nasal SARS-CoV-2 (PCR) NOT DETECTED - Rads (name of study) chest xray Relevant Findings:: Prelim report reviewed, See rad report CTA chest Relevant Findings:: Prelim report reviewed, See rad report PD Medical Decision Making - ED course Complexity details: reviewed results, re-evaluated patient, considered differential, d/w patient ED course: No concerning or diagnostic findings on the blood tests, including high- sensitivity troponin which is normal. BNP is mildly elevated at 192. Chest x-ray is interpreted by radiologist as "increased diffuse lung disease, particularly in the right mid and lower lung. Findings could represent edema and/or infection." CTA of the chest is interpreted by radiologist as "negative for pulmonary embolus. Cardiomegaly. Coronary artery disease. Dilated pulmonary arteries suggest pulmonary hypertension. Cholelithiasis. Bilateral adrenal adenomas." On reevaluation, patient says her chest pain is nearly resolved. We discussed the test results. She appears to be mildly dyspneic at rest, and reports that she does feel short of breath. Reexamination/auscultation of the lungs again demonstrates distant breath sounds in all lung rock with poor air movement bilaterally. Her pulse ox appears to be approximately 90%; it is difficult to confidently ascertain due to inconsistent correlating pleth with her atrial fibrillation. This pulse ox is on room air. In reviewing previous records, I see an inpatient stay in 2019 under similar circumstances, and the discharge summary from that stay indicates suspicion of upper respiratory infection with bronchospasm which apparently responded to breathing treatments/nebs as well as antibiotics and steroids. Thus, I am now ordering a DuoNeb as well as 10 mg of Decadron IV. On reevaluation after the DuoNeb was administered, she reports mild improvement regarding her dyspnea. She is then given 2 albuterol nebs, [id number]. Subsequently, she is ambulated down the hallway and back to her room on room air. She does not become dyspneic with this activity, and her pulse ox is 93 to 96% with a good, correlating pleth. Furthermore, the patient reports feeling much better regarding her dyspnea and that she is comfortable with discharge home at this time. On reexam, specifically auscultation of her lungs, she is now moving air bilaterally with breath sounds that are clear to auscultation bilaterally. Prescriptions for 3 days of daily prednisone as well as albuterol MDI are electronically submitted to [facility] pharmacy in [place]. Return precautions are discussed. 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 Departure - Departure Disposition: 01 Home, Self Care Clinical Impression: Dyspnea, Chest pain Condition: Good Instructions: ED Chest Pain Atypical Unkn Cause, ED Dyspnea Shortness of Breath Prescriptions: Albuterol Sulf [Ventolin Hfa Inhaler] 1 - 2 puffs INH Q4HR PRN #1 each PRN Reason: Shortness Of Air/Wheezing predniSONE [Deltasone] 40 mg PO DAILY 3 Days #6 tablet Comments: There were no concerning or diagnostic findings on tonight's tests, including the EKG, blood tests, chest x-ray, and the CT chest with contrast. Thus, the cause of your symptoms is not apparent at this time. 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 Your difficulty breathing and your slightly low oxygen level improved with the breathing treatments and thus I am electronically submitting a prescription for an albuterol inhaler to the [facility] pharmacy in [place]. You were given a dose of steroid through the IV prior to discharge; this was given for its anti- inflammatory effect which often helps further open the airways and allow for easier breathing and improved oxygen levels. I have also electronically submit aroldo a prescription for 3 more days of steroid (prednisone) to the [facility] pharmacy in [place]. Discharge Date/Time: 09/05/22 07:00
[2022-09-05 01:31] LABS: BASOPHILS # (AUTO) 0.1 10^3/uL (0.0-0.1); BASOPHILS % (AUTO) 0.8 %; EOSINOPHILS # (AUTO) 0.2 10^3/uL (0.0-0.7); EOSINOPHILS % (AUTO) 2.3 %; HCT - HEMATOCRIT 42.8 % (37.0-47.0); HGB - HEMOGLOBIN 13.5 g/dL (12.0-16.0); LYMPHOCYTES % (AUTO) 12.9 %; MEAN CORPUSCULAR HEMOGLOBIN 33.3 pg (27.0-31.0); MEAN CORPUSCULAR HGB CONC 31.5 g/dL (32.0-36.0); MEAN CORPUSCULAR VOLUME 105.7 fL (81.0-99.0); MEAN PLATELET VOLUME 10.8 fL (7.9-10.8); MONOCYTES # (AUTO) 0.5 10^3/uL (0.0-1.0); MONOCYTES % (AUTO) 6.8 %; NEUTROPHILS # (AUTO) 6.1 10^3/uL (1.5-6.6); NEUTROPHILS % (AUTO) 76.8 %; PLT - PLATELET COUNT 263 10^3/uL (130-450); RED BLOOD COUNT 4.05 10^6/uL (4.20-5.40); RED CELL DISTRIBUTION WIDTH 13.2 % (12.0-15.0); WHITE BLOOD COUNT 7.9 x10^3/uL (4.8-10.8)
--- NOTE | 2022-09-05 01:43 | XRAY Report ---
PROCEDURE: Chest 1 View X-Ray INDICATIONS: chest pain TECHNIQUE: One view of the chest was acquired. COMPARISON: 05/19/2022 FINDINGS: Surgical changes and devices: Cardiac clip Lungs and pleura: Mild to moderate mid and lower lung opacities on the right. Diffusely prominent in terstitium. Mediastinum: Cardiomegaly. Bones and chest wall: No suspicious bony lesions. Overlying soft tissues appear unremarkable. IMPRESSION: Increased diffuse lung disease, particularly in the right mid and lower lung. Findings could represen t edema and/or infection. Consider future imaging surveillance to assess for resolution. Reviewed by: Terry Roberson MD on 09/05/2022 1:42 AM PDT Approved by: Terry Roberson MD on 09/05/2022 1:42 AM PDT Station ID: [id number]
[2022-09-05 01:45] LABS: ALBUMIN 3.9 g/dL (3.2-5.5); ALBUMIN/GLOBULIN RATIO 1.3 (1.0-2.2); BILIRUBIN,TOTAL 0.5 mg/dL (0.2-1.0); CALCIUM 9.1 mg/dL (8.5-10.3); CREATININE 0.7 mg/dL (0.4-1.0); POTASSIUM 4.1 mmol/L (3.5-5.0)
[2022-09-05] MEDS ORDERED: iohexoL-300 100 ML VIAL ONE (02:47)
[2022-09-05 03:03] LABS: B. PARAPERTUSSIS- RESP PCR PAN NOT DETECTED; B. PERTUSSIS- RESP PCR PANEL NOT DETECTED; C. PNEUMONIAE- RESP PCR PANEL NOT DETECTED; CORONAVIRUS 229E-RESP PCR NOT DETECTED; CORONAVIRUS HKU1-RESP PCR NOT DETECTED; CORONAVIRUS NL63-RESP PCR NOT DETECTED; CORONAVIRUS OC43-RESP PCR NOT DETECTED; HUMAN METAPNEUMOVIRUS NOT DETECTED; INFLUENZA A- RESP PCR PANEL NOT DETECTED; INFLUENZA B - RESP PCR PANEL NOT DETECTED; M. PNEUMONIAE- RESP PCR PANEL NOT DETECTED; PARAINFLUENZA VIRUS 1 NOT DETECTED; PARAINFLUENZA VIRUS 2 NOT DETECTED; PARAINFLUENZA VIRUS 3 NOT DETECTED; PARAINFLUENZA VIRUS 4 NOT DETECTED; RHINOVIRUS/ENTEROVIRUS NOT DETECTED; RSV- RESP PCR PANEL NOT DETECTED; SARS-CoV-2 -RESP PCR PANEL NOT DETECTED
[2022-09-05] MEDS ORDERED: iohexoL-300 100 ML VIAL IVP ONE (03:29)
[2022-09-05] MEDS ORDERED: IPRATROPIUM/ALBUTEROL 3 ML NEB INH STA (04:20)
[2022-09-05] MEDS ORDERED: ALBUTEROL NEB 2.5 MG/3 ML INH STA (05:28)
[2022-09-05] MEDS ORDERED: ALBUTEROL NEB 2.5 MG/3 ML INH ONE (05:51)
[2022-09-05] MEDS ORDERED: DEXAMETHASONE 10 MG/ML VIAL IVP STA (06:36)
[2022-09-05 07:00] VITALS: BP 119/89
--- NOTE | 2022-09-05 13:11 | CT Report ---
PROCEDURE: ANGIO CHEST W/WO INDICATIONS: chest pressure, dyspnea CONTRAST: 100 ML OMNI 300 TECHNIQUE: After the administration of intravenous contrast, 2 mm axial images were acquired from the pulmonary apices to the posterior costophrenic angles during the arterial phase. In addition, 1 mm lung kernel and 5 mm soft tissue kernel reconstructions were performed. 3-dimensional coronal oblique maximum int ensity projection (MIP) reformats, 8 mm axial MIP, and 5 mm coronal and sagittal MPR reformats were t hen performed through the thorax. For radiation dose reduction, the following was used: automated exp osure control, adjustment of mA and/or kV according to patient size. COMPARISON: None. FINDINGS: Image quality: Excellent. Large vessels: No filling defects within the opacified pulmonary arteries, accounting for motion and contrast timing. The central pulmonary outflow tract appears enlarged suggesting pulmonary hypertensi on. No evidence of acute aortic syndrome or aortic aneurysm. Lungs and pleura: No pleural effusions. No pneumothorax. No suspicious pulmonary nodules which requi re follow up. Mediastinum: Heart size is mildly increased. Mild coronary artery calcification. No pericardial effus ions. No mediastinal adenopathy by size criteria. Chest wall and lower neck: Thyroid is unremarkable. No axillary or supraclavicular adenopathy by size . Bones: No aggressive osseous abnormality. Upper Abdomen: There are gallstones. There is a 3 cm right adrenal nodule. A 0.7 cm left adrenal nodu le is identified. IMPRESSION: 1. No evidence for pulmonary embolism. 2. Enlargement of pulmonary arteries suggesting pulmonary hypertension. 3. Mild cardiomegalycoronary and artery calcification. 4. Cholelithiasis. 5. Bilateral adrenal nodules. Nodules are most likely adrenal adenomas. Recommend adrenal protocol CT or MRI for follow-up. Reviewed by: Adelina Easley MD on 09/05/2022 1:10 PM PDT Approved by: Adelina Easley MD on 09/05/2022 1:10 PM PDT Station ID: [id number]
== END 2022-09-05 07:00 | disposition home or self-care (01) ==
LOC: EDUNIT# → ED 01:04
DX: R07.89 Other chest pain (principal); R06.00 Dyspnea, unspecified; I48.91 Unspecified atrial fibrillation; F17.200 Nicotine dependence, unspecified, uncomplicated; Z79.01 Long term (current) use of anticoagulants; Z79.899 Other long term (current) drug therapy; Z20.822 Contact with and (suspected) exposure to COVID-19; Z79.51 Long term (current) use of inhaled steroids
CPT/HCPCS: 36415; 71045; 71275; 80053; 83690; 83880; 84484; 85025; 87633; 93005; 94640; 96374; 99284; Q9967; 85610; 85730

== ENCOUNTER 2023-08-13 09:47 | Outpatient (CLI) | payer MEDICARE, MEDICAID ==
[2023-08-13 10:24] LABS: CREATININE,URINE 115.3 mg/dL
[2023-08-13 10:28] LABS: MICROALBUMIN,URINE < 0.7 mg/dL
[2023-08-13 17:58] LABS: ESTIMATED AVERAGE GLUCOSE 134 mg/dL (70-100); HEMOGLOBIN A1c% 6.3 % (4.27-6.07)
== END 2023-08-13 09:48 | disposition home or self-care (01) ==
LOC: LAB 09:47
PROVIDERS: ATTEND Family Medicine
DX: E11.65 Type 2 diabetes mellitus with hyperglycemia (principal)
CPT/HCPCS: 36415; 82043; 82570; 83036